=== PATIENT | female | born 1990 | race Caucasian/White ===

== ENCOUNTER → 2016-10-27 | Outpatient (CLI) | payer MEDICAID ==
[~2016-10-27] MED LIST: ARIP10TA2 PO; BUDE10.2 IH; CIPR500T4 PO; DULO20CA PO; DULO30CA48 PO; ESCI20TA2 PO; FLUT9.9S NS; HYDR-3729 PO; HYDR-3730 PO; HYDR-3816 PO; LORA-405 PO; NITR-65 PO; ONDA4TAB11 PO; ONDA8TAB13 PO; OXYC-12 PO; PRD20T PO; PREN1TAB39 PO; PRENATAL VIT PO; RT-ALBUINH IH
--- NOTE | 2016-10-27 11:14 | Diagnostic Imaging Report ---
PROCEDURE: MRI right joint lower extremity without contrast. TECHNIQUE: Multiplanar, multisequence non contrast-enhanced MRI of the right lower extremity was accomplished. INDICATION: Knee pain. Reportedly, the patient has had four prior knee arthroscopic procedures and has a history of a torn meniscus. The previous MRI right knee exam of 11/27/2014, did note postsurgical changes consistent with a partial medial meniscectomy. On this exam the medial meniscus appears similar to the prior study. There is no abnormal signal arising from the meniscus to suggest a tear. There is minimal irregularity of the inferior articular surface of the posterior horn of the lateral meniscus. This portion of the meniscus may be slightly frayed. The anterior and posterior cruciate ligaments, the quadriceps and the infrapatellar tendons, the collateral ligaments, the biceps femoris tendon, and the iliotibial band are intact. There is no sign of a tear of either the medial or lateral retinaculum. There is no abnormal signal arising from the osseous structures to suggest bone edema or a fracture. There is a thin band of decreased signal extending transversely through the fibular head. This was not present on the prior exam. There does not seem to be any bone edema in this area to suggest an acute fracture. If this is a fracture it is nondisplaced. Clinical followup is recommended. The knee joint is fairly well maintained. There is a very small joint effusion present. There is no sign of a Mendoza cyst. IMPRESSION: 1. The medial meniscus appears similar to the prior exam. There is no evidence for a new tear of the medial meniscus. 2. The minimal irregularity of the inferior articular surface of the posterior horn of the lateral meniscus suggests that this portion of the meniscus may be slightly frayed. 3. The major ligaments and tendons are intact. 4. The small linear area of diminished signal in the fibular head is of uncertain etiology but could represent a subacute or chronic nondisplaced fracture. Clinical followup is recommended. There is no evidence for an acute bony abnormality otherwise. Dictated by: Dictated on workstation # [id number]
== END ==
LOC: RAD 09:19
PROVIDERS: ATTEND Orthopaedic Surgery
DX: M25.561 Pain in right knee (principal)
CPT/HCPCS: 73721

== ENCOUNTER 2016-11-07 14:56 | Outpatient (CLI) | payer MEDICAID ==
[~2016-11-07] VITALS: Ht 162.6 cm; Wt 130.4 kg
[~2016-11-07 14:56] MED LIST changes: -BUDE10.2 IH; -HYDR-3816 PO; -LORA-405 PO
[2016-11-07] MEDS ORDERED: LORA-405 PO (15:08)
[2016-11-07] MEDS ORDERED: BUDE10.2 IH (15:08)
[2016-11-07 15:12] VITALS: BP 113/72
[2016-11-08] MEDS ORDERED: HYDR-3816 PO (11:31)
== END 2016-11-07 15:33 | disposition home or self-care (01) ==
LOC: PREOP 14:56
PROVIDERS: ATTEND Orthopaedic Surgery
DX: Z01.818 Encounter for other preprocedural examination (principal); S83.281A Other tear of lateral meniscus, current injury, right knee, initial encounter; X58.XXXA Exposure to other specified factors, initial encounter; Y99.8 Other external cause status
CPT/HCPCS: 87081

== ENCOUNTER 2016-11-08 08:52 | Day surgery (SDC) | payer MEDICAID ==
[~2016-11-08] VITALS: Ht 162.6 cm; Wt 130.4 kg
[~2016-11-08 08:52] MED LIST changes: +BUDE10.2 IH; +LORA-405 PO
[2016-11-08] MEDS ORDERED: NS (IVPB) 50 ML ONE (09:03)
[2016-11-08] MEDS ORDERED: CLINDAMYCIN 600 MG/4ML (CLEOCIN) VIAL ONE (09:03)
--- NOTE | 2016-11-08 09:14 | Progress Note-Pre Operative ---
Pre-Operative Progress Note H&P Reviewed The H&P was reviewed, patient examined and no changes noted. Date Seen by Provider: Nov 08, 2016 Time Seen by Provider: 09:14 Date H&P Reviewed: Nov 08, 2016 Time H&P Reviewed: 09:14 Pre-Operative Diagnosis: right knee lateral meniscus tear and chondromalacia JOVAN ASHRAF MD Nov 08, 2016 09:14
[2016-11-08] MEDS ORDERED: CLINDAMYCIN 600 MG/NS 50 ML IVPB IV ONE ×2 (09:15)
--- NOTE | 2016-11-08 09:16 | Progress Note-Post Operative ---
Post-Operative Progess Note Surgeon (s)/Underwear Hemmer (s) Surgeon JOVAN ASHRAF MD Underwear Hemmer: Aureliano Frank Pre-Operative Diagnosis right knee lateral meniscus tear and chondromalacia Post-Operative Diagnosis right knee chondromalacia of the medial and lateral tibial plateaus Procedure & Operative Findings Date of Procedure 11/08/16 Procedure Performed/Findings right knee arthroscopic chondroplasty of the medial and lateral tibial plateaus Anesthesia Type GETA Estimated Blood Loss Estimated blood loss (mL): minimal Specimens/Packing Specimens Removed none Packing: none JOVAN ASHRAF MD Nov 08, 2016 09:16
[2016-11-08] MEDS ORDERED: LIDOCAINE PF 2% 5 ML (XYLOCAINE) VIAL ONE (09:24)
[2016-11-08] MEDS ORDERED: SEVOFLURANE (ULTANE) 15 ML INHAL SOLN ONE ×3 (09:24→10:25)
[2016-11-08] MEDS ORDERED: ONDANSETRON 4 MG/2 ML (SDV) Z0FRAN ONE (09:24)
[2016-11-08] MEDS ORDERED: proPOfol 200 MG/20 ML (DIPRIVAN) VIAL IV ONE (09:24)
[2016-11-08] MEDS ORDERED: fentaNYL INJECTION 250 MCG/5 ML AMP ONE (09:24)
[2016-11-08] MEDS ORDERED: LACTATED RINGERS 1,000 ML IV PRN (09:29)
[2016-11-08 09:30] VITALS: BP 116/82
[2016-11-08] MEDS ORDERED: MIDAZOLAM 2 MG/2 ML (VERSED) VIAL IV ONE (09:30)
[2016-11-08] MEDS ORDERED: HYDROcodone/APAP 7.5 MG/325 MG (LORTAB, LORCET PLUS) TABLET PO PRN (09:30)
[2016-11-08] MEDS ORDERED: morphine PF (DURAMORPH) 10 MG/10 ML AMP ONE (09:48)
[2016-11-08] MEDS ORDERED: BUPIVACAINE 0.25% 30 ML (SENSORCAINE) VIAL ONE (09:48)
[2016-11-08] MEDS ORDERED: morphine INJ 10 MG/ML 1ML (SYR OR VIAL) ONE (10:26)
[2016-11-08] MEDS: morphine INJ 10 MG/ML 1ML (SYR OR VIAL) IVP PRN ×2 (10:42→10:54)
[2016-11-08] MEDS ORDERED: ONDANSETRON 4 MG/2 ML (SDV) Z0FRAN IVP PRN (10:45)
[2016-11-08] MEDS ORDERED: RT-ALBUTEROL SULF 2.5 MG/3 ML PRE-MIX VIAL ONE (10:54)
[2016-11-08] MEDS ORDERED: RT-ALBUTEROL SULF 2.5 MG/3 ML PRE-MIX VIAL INH ONE (11:15)
[2016-11-08 11:30] VITALS: BP 112/71
[2016-11-08] MEDS ORDERED: HYDR-3816 PO (11:31)
[2016-11-08 12:00] VITALS: BP 102/60
[2016-11-08 12:30] VITALS: BP 138/91
[2016-11-08 12:50] VITALS: BP 116/82
--- NOTE | 2016-11-09 01:33 | OPERATIVE REPORT ---
DATE OF SERVICE: 11/08/2016 PREOPERATIVE DIAGNOSIS: Right knee lateral meniscal tear. POSTOPERATIVE DIAGNOSIS: 1. 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 2. Right knee chondromalacia of the lateral tibial plateau. PROCEDURES: 1. Right knee arthroscopic chondroplasty of the medial tibial plateau. 2. __right___ knee arthroscopic chondroplasty of the lateral tibial plateau. SURGEON: JOVAN ASHRAF MD LOANS OFFICER: YUMIKO Combs, who assisted throughout the procedure and closed the incisions. ANESTHESIA: General endotracheal by Gasper Carreno CRNA. TOURNIQUET TIME: Not applicable. ESTIMATED BLOOD LOSS: Minimal. DRAINS: None. COMPLICATIONS: None. POSTOPERATIVE PLAN: Routine arthroscopy protocol. The patient was transferred to the recovery room awake and in stable condition. STATEMENT OF MEDICAL NECESSITY: The patient is a 26-year-old female who has undergone multiple right knee arthroscopies in the past. She was doing well until she struck her knee and since then has had anterior knee pain, swelling, catching and locking. This has been unresponsive to conservative measures and due to functional impairment the patient would like to proceed with surgical intervention. Exam under anesthesia revealed range of motion 0/0/135 with a negative Roula, negative anterior and posterior drawer. No varus or valgus laxity and a negative pivot shift. Arthroscopic findings of patella and trochlea did demonstrate no abnormalities. Medial and lateral gutters were clear. The ACL and PCL were intact. The medial compartment demonstrated grade chondral flap of the central portion of the tibial plateau in a 5 x 8 area. No meniscal pathology was noted. The lateral compartment demonstrated no meniscal pathology. However there was a grade 2 chondral flap over the central portion of the tibial plateau in an 8 x 8 area. PROCEDURE: After risks and benefits of the procedure were discussed and questions were answered an informed consent was signed and placed on the chart and the patient was transferred to the operating room. At time out was called confirming the operative site and examination under anesthesia was performed with the above findings noted. The right lower extremity was then prepped and draped in the usual sterile fashion. The knee joint was injected with 16 mL of fluid and a standard inferior lateral port was placed under direct visualization. An inferior medial port was created and the menisci cruciate was probed with above findings noted. The unstable chondral flaps from the medial tibial plateau were debrided with a shaver back to a staple edge. The scope was then redirected into the lateral compartment. The unstable chondral flaps from the lateral tibial plateau were debrided with a shaver back to a staple edge. The knee was copiously irrigated and the port site was closed with 3-0 nylon in simple interrupted fashion. The knee was injected with Duramorph and the port sites were infiltrated with plain Marcaine and soft dressing was applied. The patient was transported to the recovery room awake and in stable condition. Job ID: [id number] DocumentID: [id number] Dictated Date: 11/08/2016 10:41:59 Mechanical Car Checker Date: 11/08/2016 18:42:22 Dictated By: JOVAN ASHRAF MD MTDD
== END 2016-11-08 12:50 | disposition home or self-care (01) ==
LOC: SDC 08:52
PROVIDERS: ATTEND Orthopaedic Surgery
DX: J45.909 Unspecified asthma, uncomplicated; M94.261 Chondromalacia, right knee; F17.210 Nicotine dependence, cigarettes, uncomplicated; Z79.899 Other long term (current) drug therapy
CPT/HCPCS: 36430; 84703

== ENCOUNTER → 2017-05-22 | Outpatient (CLI) | payer MEDICAID ==
[~2017-05-22] MED LIST changes: +HYDR-34 PO
--- NOTE | 2017-05-22 13:25 | Diagnostic Imaging Report ---
INDICATION: Dysmenorrhea and menorrhagia. TECHNIQUE: Multiple Real-time grayscale images were obtained over the pelvis in various projections both transabdominally and endovaginally. FINDINGS: The uterus measures 8.3 x 4.6 x 4.4 cm. The endometrial thickness is 8 mm. There are no myometrial or endometrial masses. Neither ovary is visualized. There are no adnexal masses. There is no free pelvic fluid. IMPRESSION: Both ovaries are obscured by bowel gas; otherwise, unremarkable pelvic ultrasound. Dictated by: Dictated on workstation # [id number]
== END ==
LOC: RAD 11:58
PROVIDERS: ATTEND Nurse Practitioner
DX: N94.6 Dysmenorrhea, unspecified (principal); N92.0 Excessive and frequent menstruation with regular cycle
CPT/HCPCS: 76830; 76856

== ENCOUNTER 2017-06-25 05:36 | Outpatient (CLI) | payer MEDICAID ==
[~2017-06-25] VITALS: Ht 162.6 cm; Wt 117.9 kg
[2017-06-25 09:39] VITALS: BP 128/88
[2017-06-25] MEDS ORDERED: LISD70CA3 PO (09:45)
[2017-06-25] MEDS ORDERED: FLUT15.88 NS (09:49)
[2017-06-28] MEDS ORDERED: ACHD5005 PO (09:44)
[2017-06-28] MEDS ORDERED: IBUP-1773 PO (09:44)
== END 2017-06-25 10:00 | disposition home or self-care (01) ==
LOC: PREOP 05:36
PROVIDERS: ATTEND Obstetrics & Gynecology
DX: Z01.812 Encounter for preprocedural laboratory examination (principal); Z11.2 Encounter for screening for other bacterial diseases; R10.2 Pelvic and perineal pain; N93.9 Abnormal uterine and vaginal bleeding, unspecified
CPT/HCPCS: 84703; 87081

== ENCOUNTER 2018-07-16 08:07 | Emergency (ER) | payer MEDICAID ==
[~2018-07-16] VITALS: Ht 162.6 cm; Wt 122.5 kg
[~2018-07-16 08:07] MED LIST changes: +ACHD5005 PO; +FLUT15.88 NS; +IBUP-1773 PO; +LISD70CA3 PO
--- OUTSIDE RECORDS SUMMARY | 2018-07-16 08:16 | XMS REPORT | Continuity of Care Document ---
Author Organization Unknown Address Unknown Allergies Active Description Code Type Severity Reaction Onset Reported/Identified Relationship to Patient Clinical Status Yes amoxicillin trihydrate [id number] Drug Allergy Unknown N/A 06/08/2011 Yes tramadol [id number] Drug Allergy Unknown HEADACHES 12/11/2014 Yes tramadol [id number] Drug Allergy Mild HEADACHES 11/07/2016 Yes amoxicillin trihydrate [id number] Drug Allergy Unknown HAS HAD ANCEF W 11/07/2016 Medications There is no data. Problems Date Dx Coded Attending Type Code Diagnosis Diagnosed By 06/08/2011 Ot 644.03 THRT LUIS MIGUEL LABOR- ANTEPART 06/13/2011 Ot 278.00 OBESITY, NOS 06/13/2011 Ot 592.0 CALCULUS OF KIDNEY 06/13/2011 Ot 648.93 OTH CURR COND- ANTEPARTUM 06/13/2011 Ot 649.13 OBESITY COMP PREG/CHILDBIRTH/PUERPERIUM, 06/13/2011 Ot 654.23 PREV DELIVERY, ANTEPARTUM COND 07/07/2011 Ot 644.13 THREAT LABOR NEC-ANTEPAR 07/07/2011 Ot 654.23 PREV DELIVERY, ANTEPARTUM COND 07/14/2011 Ot 654.21 PREV DELIVRY W/ OR W/O MENT ANT 07/14/2011 Ot 656.61 EXCESS GRTH-DELIV 07/14/2011 Ot 663.31 CORD ENTANGLE NEC-DELIV 07/14/2011 Ot V06.1 [id number], COMBINED [ 07/14/2011 Ot V27.0 DELIVER-SINGLE LIVEBORN 09/13/2011 Ot 592.0 CALCULUS OF KIDNEY 11/25/2014 Ot 654.23 11/25/2014 Ot V72.63 11/25/2014 Ot V74.8 11/25/2014 Ot 592.0 11/25/2014 Ot 592.0 11/25/2014 Ot V72.84 11/25/2014 Ot V74.8 11/25/2014 Ot 592.0 11/25/2014 Ot V45.89 11/25/2014 Ot 592.9 11/27/2014 Ot 654.23 11/27/2014 Ot V72.63 11/27/2014 Ot V74.8 11/27/2014 Ot 592.0 11/27/2014 Ot 592.0 11/27/2014 Ot V72.84 11/27/2014 Ot V74.8 11/27/2014 Ot 592.0 11/27/2014 Ot V45.89 11/27/2014 Ot 592.9 12/04/2014 ANDRIY JUNIOR, JOVAN Rutledge Ot M23.203 12/08/2014 ANDRIY JUNIOR, JOVAN Rutledge Ot M23.203 12/10/2014 ANDRIY JUNIOR, JOVAN Rutledge Ot M23.203 12/16/2014 Ot 654.23 12/16/2014 Ot V72.63 12/16/2014 Ot V74.8 12/16/2014 Ot 592.0 12/16/2014 Ot 592.0 12/16/2014 Ot V72.84 12/16/2014 Ot V74.8 12/16/2014 Ot 592.0 12/16/2014 Ot V45.89 12/16/2014 Ot 592.9 12/16/2014 ANDRIY JUNIOR, JOVAN Rutledge Ot M23.203 12/16/2014 ANDRIY JUNIOR, JOVAN Rutledge Ot M22.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, RIGHT KNEE 12/16/2014 ANDRIY JUNIOR, JOVAN Rutledge Ot M67.51 PLICA SYNDROME, RIGHT KNEE 12/16/2014 ANDRIY JUNIOR, JOVAN Rutledge Ot Z11.2 ENCOUNTER FOR SCREENING FOR OTHER BACTER 04/02/2015 Ot M54.16 07/22/2015 Ot 654.23 PREV DELIVERY, ANTEPARTUM COND 07/22/2015 Ot V72.63 PRE-PROCEDURAL LABORATORY EXAMINATION 07/22/2015 Ot V74.8 SCREEN-BACTERIAL DIS NEC 07/22/2015 Ot 592.0 CALCULUS OF KIDNEY 07/22/2015 Ot 592.0 CALCULUS OF KIDNEY 07/22/2015 Ot V72.84 EXAM PRE-OPERATIVE NOS 07/22/2015 Ot V74.8 SCREEN-BACTERIAL DIS NEC 07/22/2015 Ot 592.0 CALCULUS OF KIDNEY 07/22/2015 Ot V45.89 POSTSURGICAL STATES NEC 07/22/2015 Ot 592.9 URINARY CALCULUS NOS 07/22/2015 ANDRIY JUNIOR, JOVAN Rutledge Ot M23.203 DERANG OF UNSP MEDIAL MENISCUS DUE TO OL 07/22/2015 Ot M54.16 RADICULOPATHY, LUMBAR REGION 08/04/2015 NICK JUNIOR, ANAI Null Ot Z33.1 STATE, INCIDENTAL 08/07/2015 STACY MENDIOLA Ot F17.210 NICOTINE DEPENDENCE, CIGARETTES, UNCOMPL 08/07/2015 STACY MENDIOLA Ot O20.0 THREATENED 08/07/2015 STACY MENDIOLA Ot Z3A.01 LESS THAN 8 WEEKS GESTATION OF 08/08/2015 Ot O03.9 COMPLETE OR UNSP SPONTANEOUS [place] 08/08/2015 Ot Z3A.01 LESS THAN 8 WEEKS GESTATION OF 08/09/2015 STACY MENDIOLA Ot F17.210 NICOTINE DEPENDENCE, CIGARETTES, UNCOMPL 08/09/2015 STACY MENDIOLA Ot O20.0 THREATENED 08/09/2015 STACY MENDIOLA Ot Z3A.01 LESS THAN 8 WEEKS GESTATION OF 08/09/2015 ANAI ROMERO MD Ot O02.1 MISSED 08/09/2015 ANAI ROMERO MD Ot Z01.818 ENCOUNTER FOR OTHER PREPROCEDURAL EXAMIN 08/10/2015 ANAI ROMERO MD Ot O02.1 MISSED 08/10/2015 ANAI ROMERO MD Ot Z3A.01 LESS THAN 8 WEEKS GESTATION OF 08/13/2015 STACY MENDIOLA Ot F17.210 NICOTINE DEPENDENCE, CIGARETTES, UNCOMPL 08/13/2015 STACY MENDIOLA Ot O20.0 THREATENED 08/13/2015 STACY MENDIOLA Ot Z3A.01 LESS THAN 8 WEEKS GESTATION OF 08/15/2015 ANAI ROMERO MD Ot O02.1 MISSED 08/15/2015 ANAI ROMERO MD Ot Z01.818 ENCOUNTER FOR OTHER PREPROCEDURAL EXAMIN 12/22/2015 Ot 654.23 PREV DELIVERY, ANTEPARTUM COND 12/22/2015 Ot V72.63 PRE-PROCEDURAL LABORATORY EXAMINATION 12/22/2015 Ot V74.8 SCREEN-BACTERIAL DIS NEC 12/22/2015 Ot 592.0 CALCULUS OF KIDNEY 12/22/2015 Ot 592.0 CALCULUS OF KIDNEY 12/22/2015 Ot V72.84 EXAM PRE-OPERATIVE NOS 12/22/2015 Ot V74.8 SCREEN-BACTERIAL DIS NEC 12/22/2015 Ot 592.0 CALCULUS OF KIDNEY 12/22/2015 Ot V45.89 POSTSURGICAL STATES NEC 12/22/2015 Ot 592.9 URINARY CALCULUS NOS 12/22/2015 ANDRIY JUNIOR, JOVAN Rutledge Ot M23.203 DERANG OF UNSP MEDIAL MENISCUS DUE TO OL 12/22/2015 Ot M54.16 RADICULOPATHY, LUMBAR REGION 12/22/2015 NICK JUNIOR, ANAI Null Ot Z33.1 STATE, INCIDENTAL 12/24/2015 ANDRIY JUNIOR, JOVAN Rutledge Ot M22.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, RIGHT KNEE 01/03/2016 ANDRIY JUNIOR, JOVAN Rutledge Ot M22.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, RIGHT KNEE 01/11/2016 ANDRIY JUNIOR, JOVAN Rutledge Ot M22.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, RIGHT KNEE 01/13/2016 STACY MENDIOLA Ot J40 BRONCHITIS, NOT SPECIFIED ACUTE OR CH 01/13/2016 STACY MENDIOLA Ot R05 COUGH 01/13/2016 STACY MENDIOLA Ot R11.2 NAUSEA WITH VOMITING, UNSPECIFIED 01/13/2016 STACY MENDIOLA Ot R19.7 DIARRHEA, UNSPECIFIED 01/14/2016 STACY MENDIOLA Ot J40 BRONCHITIS, NOT SPECIFIED ACUTE OR CH 01/14/2016 STACY MENDIOLA Ot R05 COUGH 01/14/2016 STACY MENDIOLA Ot R11.2 NAUSEA WITH VOMITING, UNSPECIFIED 01/14/2016 STACY MENDIOLA Ot R19.7 DIARRHEA, UNSPECIFIED 01/15/2016 STACY MENDIOLA Ot J40 BRONCHITIS, NOT SPECIFIED ACUTE OR CH 01/15/2016 STACY MENDIOLA Ot R05 COUGH 01/15/2016 STACY MENDIOLA Ot R11.2 NAUSEA WITH VOMITING, UNSPECIFIED 01/15/2016 STACY MENDIOLA Ot R19.7 DIARRHEA, UNSPECIFIED 01/28/2016 JOVAN ASHRAF MD, Ot M22.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, RIGHT KNEE 10/25/2016 JOVAN ASHRAF MD, Ot M22.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, RIGHT KNEE 10/25/2016 JOVAN ASHRAF MD Ot M23.203 DERANG OF UNSP MEDIAL MENISCUS DUE TO OL 10/25/2016 JOVAN ASHRAF MD Ot Z01.818 ENCOUNTER FOR OTHER PREPROCEDURAL EXAMIN 10/30/2016 JOVAN ASHRAF MD Ot M25.561 PAIN IN RIGHT KNEE 11/07/2016 JOVAN ASHRAF MD Ot S83.281A OTH TEAR OF LAT MENSC, CURRENT INJURY, R 11/07/2016 JOVAN ASHRAF MD Ot X58.XXXA EXPOSURE TO OTHER SPECIFIED FACTORS, INI 11/07/2016 JOVAN ASHRAF MD Ot Y99.8 OTHER EXTERNAL CAUSE STATUS 11/07/2016 JOVAN ASHRAF MD Ot Z01.818 ENCOUNTER FOR OTHER PREPROCEDURAL EXAMIN 11/08/2016 JOVAN ASHRAF MD Ot F17.210 NICOTINE DEPENDENCE, CIGARETTES, UNCOMPL 11/08/2016 JOVAN ASHRAF MD Ot J45.909 UNSPECIFIED ASTHMA, UNCOMPLICATED 11/08/2016 JOVAN ASHRAF MD Ot M94.261 CHONDROMALACIA, RIGHT KNEE 11/08/2016 JOVAN ASHRAF MD Ot Z79.899 OTHER WELDER TECH (CURRENT) DRUG THERAPY 11/13/2016 JOVAN ASHRAF MD Ot S83.281A OTH TEAR OF LAT MENSC, CURRENT INJURY, R 11/13/2016 JOVAN ASHRAF MD Ot X58.XXXA EXPOSURE TO OTHER SPECIFIED FACTORS, INI 11/13/2016 JOVAN ASHRAF MD Ot Y99.8 OTHER EXTERNAL CAUSE STATUS 11/13/2016 JOVAN ASHRAF MD Ot Z01.818 ENCOUNTER FOR OTHER PREPROCEDURAL EXAMIN 11/24/2016 JOVAN ASHRAF MD Ot M25.561 PAIN IN RIGHT KNEE 05/23/2017 YESENIA PEPPERP Ot N92.0 EXCESSIVE AND FREQUENT MENSTRUATION WITH 05/23/2017 YESENIA PEPPER CONCIERGE RECEPTIONIST Ot N94.6 DYSMENORRHEA, UNSPECIFIED 05/23/2017 YESENIA PEPPER CONCIERGE RECEPTIONIST Ot N92.0 EXCESSIVE AND FREQUENT MENSTRUATION WITH 05/23/2017 YESENIA PEPPER CONCIERGE RECEPTIONIST Ot N94.6 DYSMENORRHEA, UNSPECIFIED 06/25/2017 FENECH DO, JOVAN Calvin Ot N93.9 ABNORMAL UTERINE AND VAGINAL BLEEDING, U 06/25/2017 LEE ANNECH DO, JOVAN Marixa Ot R10.2 PELVIC AND PERINEAL PAIN 06/25/2017 FENECH DO, JOVAN S Ot Z01.812 ENCOUNTER FOR PREPROCEDURAL LABORATORY E 06/25/2017 FENECH DO, JOVAN S Ot Z11.2 ENCOUNTER FOR SCREENING FOR OTHER BACTER 06/27/2017 LEE ANNECH DO, JOVAN Marixa Ot N93.9 ABNORMAL UTERINE AND VAGINAL BLEEDING, U 06/27/2017 LEE ANNECH DO, JOVAN Calvin Ot R10.2 PELVIC AND PERINEAL PAIN 06/27/2017 FENECH DO, JOVAN Marixa Ot Z01.812 ENCOUNTER FOR PREPROCEDURAL LABORATORY E 06/27/2017 LEE ANNECH DO, JOVAN S Ot Z11.2 ENCOUNTER FOR SCREENING FOR OTHER BACTER 06/28/2017 LEE ANNECH DO, JOVAN Calvin Ot E66.01 MORBID (SEVERE) OBESITY DUE TO EXCESS CA 06/28/2017 LEE ANNECH DO, JOVAN Calvin Ot N92.0 EXCESSIVE AND FREQUENT MENSTRUATION WITH 06/28/2017 LEE ANNECH DO, JOVAN Calvin Ot N93.9 ABNORMAL UTERINE AND VAGINAL BLEEDING, U 06/28/2017 LEE ANNECH DO, JOVAN Calvin Ot N94.12 DEEP DYSPAREUNIA 06/28/2017 BERNARDO DO JOVAN Calvin Ot N94.5 SECONDARY DYSMENORRHEA 06/28/2017 BERNARDO DOJOVAN Marixa Ot R10.2 PELVIC AND PERINEAL PAIN 06/28/2017 LEE ANNECH DO, JOVAN Marixa Ot Z40.03 ENCOUNTER FOR PROPHYLACTIC REMOVAL OF FA 06/28/2017 FENECH DO, JOVAN S Ot Z68.41 BODY MASS INDEX (BMI) 40.0-44.9, ADULT 06/29/2017 BOB JUNIOR, ASHIA Calvin Ot F32.9 MAJOR DEPRESSIVE DISORDER, SINGLE EPISOD 06/29/2017 BOB JUNIOR, ASHIA Calvin Ot F41.9 ANXIETY DISORDER, UNSPECIFIED 06/29/2017 BOB JUNIOR, ASHIA Calvin Ot F43.10 POST-TRAUMATIC STRESS DISORDER, UNSPECIF 06/29/2017 ASHIA ROJAS MD Ot G89.18 OTHER ACUTE POSTPROCEDURAL PAIN 06/29/2017 ASHIA ROJAS MD Ot J45.909 UNSPECIFIED ASTHMA, UNCOMPLICATED 06/29/2017 BOB JUNIOR, ASHIA Calvin Ot R10.30 LOWER ABDOMINAL PAIN, UNSPECIFIED 06/29/2017 BOB JUNIOR, ASHIA Calvin Ot Z79.51 WELDER TECH (CURRENT) USE OF INHALED STERO 06/29/2017 ASHIA ROJAS MD Ot Z87.442 PERSONAL HISTORY OF URINARY CALCULI 06/29/2017 BOB JUNIOR, ASHIA Calvin Ot Z87.59 PERSONAL HISTORY OF COMP OF PREG, CHLDBR 06/29/2017 ASHIA ROJAS MD Ot Z88.0 ALLERGY STATUS TO PENICILLIN 06/29/2017 ASHIA ROJAS MD Ot Z88.6 ALLERGY STATUS TO ANALGESIC AGENT STATUS 06/29/2017 ASHIA ROJAS MD Ot Z90.89 ACQUIRED ABSENCE OF OTHER ORGANS 06/29/2017 ASHIA ROJAS MD Ot Z98.890 OTHER SPECIFIED POSTPROCEDURAL STATES 07/02/2017 BOB JUNIOR, ASHIA Calvin Ot F32.9 MAJOR DEPRESSIVE DISORDER, SINGLE EPISOD 07/02/2017 BOB JUNIOR, ASHIA Calvin Ot F41.9 ANXIETY DISORDER, UNSPECIFIED 07/02/2017 BOB JUNIOR, ASHIA Calvin Ot F43.10 POST-TRAUMATIC STRESS DISORDER, UNSPECIF 07/02/2017 ASHIA ROJAS MD Ot G89.18 OTHER ACUTE POSTPROCEDURAL PAIN 07/02/2017 ASHIA ROJAS MD Ot J45.909 UNSPECIFIED ASTHMA, UNCOMPLICATED 07/02/2017 BOB JUNIOR, ASHIA Calvin Ot R10.30 LOWER ABDOMINAL PAIN, UNSPECIFIED 07/02/2017 BOB JUNIOR, ASHIA Calvin Ot Z79.51 DETENTION (CURRENT) USE OF INHALED STERO 07/02/2017 ASHIA ROJAS MD Ot Z87.442 PERSONAL HISTORY OF URINARY CALCULI 07/02/2017 ASHIA ROJAS MD Ot Z87.59 PERSONAL HISTORY OF COMP OF PREG, CHLDBR 07/02/2017 ASHIA ROJAS MD Ot Z88.0 ALLERGY STATUS TO PENICILLIN 07/02/2017 ASHIA ROJAS MD Ot Z88.6 ALLERGY STATUS TO ANALGESIC AGENT STATUS 07/02/2017 ASHIA ROJAS MD Ot Z90.89 ACQUIRED ABSENCE OF OTHER ORGANS 07/02/2017 ASHIA ROJAS MD Ot Z98.890 OTHER SPECIFIED POSTPROCEDURAL STATES 07/02/2017 JOVAN CHANG DO Ot E66.01 MORBID (SEVERE) OBESITY DUE TO EXCESS CA 07/02/2017 JOVAN CHANG DO Ot N92.0 EXCESSIVE AND FREQUENT MENSTRUATION WITH 07/02/2017 JOVAN CHANG DO Ot N93.9 ABNORMAL UTERINE AND VAGINAL BLEEDING, U 07/02/2017 JOVAN CHANG DO Ot N94.12 DEEP DYSPAREUNIA 07/02/2017 JOVAN CHANG DO Ot N94.5 SECONDARY DYSMENORRHEA 07/02/2017 JOVAN CHANG DO Ot R10.2 PELVIC AND PERINEAL PAIN 07/02/2017 JOVAN CHANG DO Ot Z40.03 ENCOUNTER FOR PROPHYLACTIC REMOVAL OF FA 07/02/2017 JOVAN CHANG DO Ot Z68.41 BODY MASS INDEX (BMI) 40.0-44.9, ADULT 07/02/2017 JOVAN CHANG DO Ot E66.01 MORBID (SEVERE) OBESITY DUE TO EXCESS CA 07/02/2017 JOVAN CHANG DO Ot N92.0 EXCESSIVE AND FREQUENT MENSTRUATION WITH 07/02/2017 JOVAN CHANG DO Ot N93.9 ABNORMAL UTERINE AND VAGINAL BLEEDING, U 07/02/2017 JOVAN CHANG DO Ot N94.12 DEEP DYSPAREUNIA 07/02/2017 JOVAN CHANG DO Ot N94.5 SECONDARY DYSMENORRHEA 07/02/2017 BERNARDO THOMPSON JOVAN Calvin Ot R10.2 PELVIC AND PERINEAL PAIN 07/02/2017 BERNARDO THOMPSON JOVAN Calvin Ot Z40.03 ENCOUNTER FOR PROPHYLACTIC REMOVAL OF FA 07/02/2017 JOVAN CHANG DO Ot Z68.41 BODY MASS INDEX (BMI) 40.0-44.9, ADULT Procedures Code Description Performed By Performed On 74.1 07/11/2011 Results Test Result Range Complete blood count (CBC) with automated white blood cell (WBC) differential - 01/13/16 17:52 Blood leukocytes automated count (number/volume) 10.5 10*3/uL 4.3-11.0 Blood erythrocytes automated count (number/volume) 4.74 10*6/uL 4.35-5.85 Venous blood hemoglobin measurement (mass/volume) 14.3 g/dL 11.5-16.0 Blood hematocrit (volume fraction) 41 % 35-52 Automated erythrocyte mean corpuscular volume 86 [foz_us] 80-99 Automated erythrocyte mean corpuscular hemoglobin (mass per erythrocyte) 30 pg 25-34 Automated erythrocyte mean corpuscular hemoglobin concentration measurement (mass/volume) 35 g/dL 32-36 Automated erythrocyte distribution width ratio 12.5 % 10.0- 14.5 Automated blood platelet count (count/volume) 208 10*3/uL 130-400 Automated blood platelet mean volume measurement 9.9 [foz_us] 7.4-10.4 Automated blood neutrophils/100 leukocytes 73 % 42-75 Automated blood lymphocytes/100 leukocytes 19 % 12-44 Blood monocytes/100 leukocytes 7 % 0-12 Automated blood eosinophils/100 leukocytes 1 % 0-10 Automated blood basophils/100 leukocytes 0 % 0-10 Blood neutrophils automated count (number/volume) 7.7 10*3 1.8-7.8 Blood lymphocytes automated count (number/volume) 2.0 10*3 1.0-4.0 Blood monocytes automated count (number/volume) 0.7 10*3 0.0- 1.0 Automated eosinophil count 0.1 10*3/uL 0.0-0.3 Automated blood basophil count (count/volume) 0.0 10*3/uL 0.0-0.1 Serum heterophile antibody titer - 01/13/16 17:52 Serum heterophile antibody titer NEGATIVE NEGATIVE Influenza virus A and B antigen detection - 01/13/16 17:52 FLU RESULT NEGATIVE FOR INFLUENZA A AND B ANTIGENS BY [facility] Comprehensive metabolic panel - 01/13/16 17:52 Serum or plasma sodium measurement (moles/volume) 140 mmol/L 135-145 Serum or plasma potassium measurement (moles/volume) 4.2 mmol/L 3.6-5.0 Serum or plasma chloride measurement (moles/volume) 108 mmol/L 98-107 Carbon dioxide 22 mmol/L 21-32 Serum or plasma anion gap determination (moles/volume) 10 mmol/L 5-14 Serum or plasma urea nitrogen measurement (mass/volume) 17 mg/dL 7-18 Serum or plasma creatinine measurement (mass/volume) 0.82 mg/dL 0.60-1.30 Serum or plasma urea nitrogen/creatinine mass ratio 21 NRG Serum or plasma creatinine measurement with calculation of estimated glomerular filtration rate > NRG Serum or plasma glucose measurement (mass/volume) 105 mg/dL 70-105 Serum or plasma calcium measurement (mass/volume) 9.4 mg/dL 8.5-10.1 Serum or plasma total bilirubin measurement (mass/volume) 0.3 mg/dL 0.1-1.0 Serum or plasma alkaline phosphatase measurement (enzymatic activity/volume) 63 U/L 40-136 Serum or plasma aspartate aminotransferase measurement (enzymatic activity/volume) 15 U/L 5-34 Serum or plasma alanine aminotransferase measurement (enzymatic activity/volume) 25 U/L 0-55 Serum or plasma protein measurement (mass/volume) 6.7 g/dL 6.4-8.2 Serum or plasma albumin measurement (mass/volume) 4.0 g/dL 3.2-4.5 Lipase - 01/13/16 17:52 Lipase 39 U/L 8-78 Complete urinalysis with reflex to culture - 01/13/16 17:55 Urine color determination YELLOW NRG Urine clarity determination CLEAR NRG Urine pH measurement by test strip 6.5 5-9 Specific gravity of urine by test strip 1.015 1.016-1.022 Urine protein assay by test strip, semi-quantitative NEGATIVE NEGATIVE Urine glucose detection by automated test strip NEGATIVE NEGATIVE Erythrocytes detection in urine sediment by light microscopy 5+ NEGATIVE Urine ketones detection by automated test strip NEGATIVE NEGATIVE Urine nitrite detection by test strip NEGATIVE NEGATIVE Urine total bilirubin detection by test strip NEGATIVE NEGATIVE Urine urobilinogen measurement by automated test strip (mass/volume) NORMAL NORMAL Urine leukocyte esterase detection by dipstick NEGATIVE NEGATIVE Automated urine sediment erythrocyte count by microscopy (number/high power field) [HPF] NRG Automated urine sediment leukocyte count by microscopy (number/high power field) [HPF] NRG Bacteria detection in urine sediment by light microscopy NEGATIVE NRG Squamous epithelial cells detection in urine sediment by light microscopy 5-10 NRG Crystals detection in urine sediment by light microscopy NONE NRG Casts detection in urine sediment by light microscopy NONE NRG Mucus detection in urine sediment by light microscopy NEGATIVE NRG Complete urinalysis with reflex to culture NO NRG Methicillin resistant Staphylococcus aureus (MRSA) screening culture - 11/07/16 15:10 Methicillin resistant Staphylococcus aureus (MRSA) screening culture NEG NRG Urine beta human chorionic gonadotropin (hCG) measurement - 11/08/16 08:55 Urine beta human chorionic gonadotropin (hCG) measurement NEGATIVE NEGATIVE Methicillin resistant Staphylococcus aureus (MRSA) screening culture - 06/25/17 09:50 Methicillin resistant Staphylococcus aureus (MRSA) screening culture NEG NRG Urine beta human chorionic gonadotropin (hCG) measurement - 06/25/17 09:52 Urine beta human chorionic gonadotropin (hCG) measurement NEGATIVE NEGATIVE Complete blood count (CBC) with automated white blood cell (WBC) differential - 06/28/17 07:30 Blood leukocytes automated count (number/volume) 7.3 10*3/uL 4.3-11.0 Blood erythrocytes automated count (number/volume) 4.96 10*6/uL 4.35-5.85 Venous blood hemoglobin measurement (mass/volume) 15.0 g/dL 11.5-16.0 Blood hematocrit (volume fraction) 43 % 35-52 Automated erythrocyte mean corpuscular volume 87 [foz_us] 80-99 Automated erythrocyte mean corpuscular hemoglobin (mass per erythrocyte) 30 pg 25-34 Automated erythrocyte mean corpuscular hemoglobin concentration measurement (mass/volume) 35 g/dL 32-36 Automated erythrocyte distribution width ratio 13.1 % 10.0- 14.5 Automated blood platelet count (count/volume) 244 10*3/uL 130-400 Automated blood platelet mean volume measurement 9.8 [foz_us] 7.4-10.4 Automated blood neutrophils/100 leukocytes 59 % 42-75 Automated blood lymphocytes/100 leukocytes 33 % 12-44 Blood monocytes/100 leukocytes 6 % 0-12 Automated blood eosinophils/100 leukocytes 2 % 0-10 Automated blood basophils/100 leukocytes 0 % 0-10 Blood neutrophils automated count (number/volume) 4.3 10*3 1.8-7.8 Blood lymphocytes automated count (number/volume) 2.4 10*3 1.0-4.0 Blood monocytes automated count (number/volume) 0.4 10*3 0.0- 1.0 Automated eosinophil count 0.2 10*3/uL 0.0-0.3 Automated blood basophil count (count/volume) 0.0 10*3/uL 0.0-0.1 Blood type T Indirect antibody screen panel - 06/28/17 07:30 ABO+Rh group OP NRG Transfusion band number [id number] NRG Blood group antibody screen NEGATIVE NRG Complete urinalysis with reflex to culture - 06/29/17 16:10 Urine color determination YELLOW NRG Urine clarity determination CLEAR NRG Urine pH measurement by test strip 6.5 5-9 Specific gravity of urine by test strip 1.020 1.016-1.022 Urine protein assay by test strip, semi-quantitative 2+ NEGATIVE Urine glucose detection by automated test strip NEGATIVE NEGATIVE Erythrocytes detection in urine sediment by light microscopy 4+ NEGATIVE Urine ketones detection by automated test strip NEGATIVE NEGATIVE Urine nitrite detection by test strip NEGATIVE NEGATIVE Urine total bilirubin detection by test strip NEGATIVE NEGATIVE Urine urobilinogen measurement by automated test strip (mass/volume) 4 mg/dL NORMAL Urine leukocyte esterase detection by dipstick 1+ NEGATIVE Automated urine sediment erythrocyte count by microscopy (number/high power field) [HPF] NRG Automated urine sediment leukocyte count by microscopy (number/high power field) [HPF] NRG Bacteria detection in urine sediment by light microscopy NEGATIVE NRG Squamous epithelial cells detection in urine sediment by light microscopy 2-5 NRG Crystals detection in urine sediment by light microscopy PRESENT NRG Casts detection in urine sediment by light microscopy NONE NRG Mucus detection in urine sediment by light microscopy NEGATIVE NRG Complete urinalysis with reflex to culture NO NRG Calcium oxalate crystals detection in urine sediment by light microscopy FEW NRG Complete blood count (CBC) with automated white blood cell (WBC) differential - 06/29/17 16:40 Blood leukocytes automated count (number/volume) 11.3 10*3/uL 4.3-11.0 Blood erythrocytes automated count (number/volume) 4.64 10*6/uL 4.35-5.85 Venous blood hemoglobin measurement (mass/volume) 14.3 g/dL 11.5-16.0 Blood hematocrit (volume fraction) 41 % 35-52 Automated erythrocyte mean corpuscular volume 89 [foz_us] 80-99 Automated erythrocyte mean corpuscular hemoglobin (mass per erythrocyte) 31 pg 25-34 Automated erythrocyte mean corpuscular hemoglobin concentration measurement (mass/volume) 35 g/dL 32-36 Automated erythrocyte distribution width ratio 13.0 % 10.0- 14.5 Automated blood platelet count (count/volume) 211 10*3/uL 130-400 Automated blood platelet mean volume measurement 9.6 [foz_us] 7.4-10.4 Automated blood neutrophils/100 leukocytes 78 % 42-75 Automated blood lymphocytes/100 leukocytes 15 % 12-44 Blood monocytes/100 leukocytes 7 % 0-12 Automated blood eosinophils/100 leukocytes 0 % 0-10 Automated blood basophils/100 leukocytes 0 % 0-10 Blood neutrophils automated count (number/volume) 8.8 10*3 1.8-7.8 Blood lymphocytes automated count (number/volume) 1.7 10*3 1.0-4.0 Blood monocytes automated count (number/volume) 0.7 10*3 0.0- 1.0 Automated eosinophil count 0.0 10*3/uL 0.0-0.3 Automated blood basophil count (count/volume) 0.0 10*3/uL 0.0-0.1 Comprehensive metabolic panel - 06/29/17 16:40 Serum or plasma sodium measurement (moles/volume) 143 mmol/L 135-145 Serum or plasma potassium measurement (moles/volume) 3.9 mmol/L 3.6-5.0 Serum or plasma chloride measurement (moles/volume) 110 mmol/L 98-107 Carbon dioxide 24 mmol/L 21-32 Serum or plasma anion gap determination (moles/volume) 9 mmol/L 5-14 Serum or plasma urea nitrogen measurement (mass/volume) 11 mg/dL 7-18 Serum or plasma creatinine measurement (mass/volume) 0.77 mg/dL 0.60-1.30 Serum or plasma urea nitrogen/creatinine mass ratio 14 NRG Serum or plasma creatinine measurement with calculation of estimated glomerular filtration rate > NRG Serum or plasma glucose measurement (mass/volume) 101 mg/dL 70-105 Serum or plasma calcium measurement (mass/volume) 9.2 mg/dL 8.5-10.1 Serum or plasma total bilirubin measurement (mass/volume) 1.1 mg/dL 0.1-1.0 Serum or plasma alkaline phosphatase measurement (enzymatic activity/volume) 41 U/L 40-136 Serum or plasma aspartate aminotransferase measurement (enzymatic activity/volume) 19 U/L 5-34 Serum or plasma alanine aminotransferase measurement (enzymatic activity/volume) 21 U/L 0-55 Serum or plasma protein measurement (mass/volume) 6.7 g/dL 6.4-8.2 Serum or plasma albumin measurement (mass/volume) 3.8 g/dL 3.2-4.5 Lipase - 06/29/17 16:40 Lipase 22 U/L 8-78 Encounters ACCT No. Visit Date/Time Discharge Status Pt. Type Provider Facility Loc./Unit Complaint [id number] 06/29/2017 15:39:00 06/29/2017 18:25:00 DIS Emergency ASHIA ROJAS MD [facility] ER PAIN AFTER SURGERY [id number] 06/28/2017 07:14:00 06/28/2017 13:55:00 DIS Outpatient JOVAN CHANG DO Via [facility] CHRONIC PELVIC PAIN,ABNORMAL UTERINE BLEEDING [id number] 06/25/2017 05:36:00 06/25/2017 10:00:00 DIS Outpatient JOVAN CHANG DO [facility] PREOP CHRONIC PELVIC PAIN,ABNORMAL UTERINE BLEEDING [id number] 05/22/2017 11:58:00 05/22/2017 23:59:59 CLS Outpatient YESENIA PEPPER [facility] RAD N94.6 DYSMENORRHEA [id number] 11/08/2016 08:52:00 11/08/2016 12:50:00 DIS Outpatient JOVAN ASHRAF MD [facility] RT. KNEE TORN LAT. MENISCUS [id number] 11/07/2016 14:56:00 11/07/2016 15:33:00 DIS Outpatient JOVAN ASHRAF MD [facility] PREOP RIGHT KNEE TORN LATERAL MENISCUS [id number] 10/27/2016 09:19:00 10/27/2016 23:59:59 CLS Outpatient JOVAN ASHRAF MD [facility] RAD CHONDROMALACIA PATELLA RT M22.41 [id number] 01/28/2016 08:00:00 01/28/2016 12:11:00 DIS Outpatient JOVAN ASHRAF MD [facility] REHAB R KNEE PAIN [id number] 01/13/2016 17:10:00 01/13/2016 20:30:00 DIS Emergency STACY MENDIOLA [facility] ER FLU [id number] 08/10/2015 10:40:00 08/10/2015 15:12:00 DIS Outpatient ANAI ROMERO MD Via [facility] MISSED AB [id number] 08/09/2015 10:34:00 08/09/2015 12:56:00 DIS Outpatient ANAI ROMERO MD Via [facility] PREOP MISSED AB [id number] 08/07/2015 16:03:00 08/07/2015 18:11:00 DIS Emergency STACY MENDIOLA Via [facility] ER VAGINAL BLEEDING, 7 WKS PREG [id number] 07/22/2015 12:40:00 07/22/2015 23:59:59 CLS Outpatient ANAI ROMERO MD Via [facility] RAD ELEVATED HCG, DHEERAJ IUP, EVALUATE FOR ECTOPIC [id number] 12/16/2014 07:37:00 12/16/2014 12:25:00 DIS Outpatient JOVAN ASHRAF MD Via [facility] RIGHT KNEE TORN MENISCUS [id number] 12/11/2014 09:24:00 12/11/2014 23:59:59 CLS Outpatient JOVAN ASHRAF MD [facility] PREOP RIGHT KNEE TORN MENISCUS [id number] 11/27/2014 11:04:00 11/27/2014 23:59:59 CLS Outpatient JOVAN ASHRAF MD Via [facility] RAD RT MMT [id number] 08/08/2015 12:57:00 Document Registration [id number] 03/24/2015 09:37:00 Document Registration [id number] 11/03/2011 10:51:00 Document Registration [id number] 09/27/2011 13:23:00 Document Registration [id number] 09/13/2011 05:43:00 Document Registration [id number] 09/04/2011 10:38:00 Document Registration [id number] 08/15/2011 14:18:00 Document Registration [id number] 07/11/2011 06:19:00 Document Registration [id number] 07/10/2011 14:06:00 Document Registration [id number] 07/07/2011 11:03:00 Document Registration [id number] 06/11/2011 14:30:00 Document Registration [id number] 06/07/2011 22:00:00 Document Registration [id number] 11/27/2014 11:05:09 ACT Document Registration
[2018-07-16] MEDS ORDERED: VORT10TA (08:30)
--- NOTE | 2018-07-16 08:55 | ED Upper Extremity ---
General Chief Complaint: Upper Extremity Stated Complaint: ARM PAIN Nursing Triage Note: PT TO ROOM 6 PT CO OF R ARM PAIN FROM FALL AT 0230 THIS AM, DENIES HITTING HEAD Nursing Sepsis Screen: No Definite Risk Source: patient Exam Limitations: no limitations History of Present Illness Date Seen by Provider: July 16, 2018 Time Seen by Provider: 08:30 Initial Comments Here with report of right arm and shoulder pain after suffering a fall at about 2:30 this morning. She was helping a person who was reportedly drunk and he fell and caused her to fall with him and landed on a table on her right arm. She complains of pain afterwards especially to the area of the mid forearm and the lateral aspect of the shoulder. Pain with movement of the hand. She is able to range the shoulder but it does cause pain and she has pain to touch. She has bruises noted in the areas of concern. Denies hitting her head or loss of consciousness. Onset: this morning Severity: moderate Pain/Injury Location: right shoulder, right forearm Method of Injury: direct blow, fell Modifying Factors: Improves With Immobilization; Worse With Movement; Improves With Rest Allergies and Home Medications Allergies Coded Allergies: amoxicillin trihydrate (Verified Allergy, Unknown, HAS HAD ANCEF W/O PROBLEMS, 11/07/16) tramadol (Verified Adverse Reaction, Mild, HEADACHES, 11/07/16) Home Medications Lisdexamfetamine Dimesylate 70 Mg Capsule, 70 MG PO DAILY, (Reported) Patient Home Medication List Home Medication List Reviewed: Yes Review of Systems Constitutional: no symptoms reported Respiratory: no symptoms reported Cardiovascular: no symptoms reported Musculoskeletal: see HPI Skin: see HPI Past Ovdelzg-Rurxvf-Gwmqvx Hx Past Med/Social Hx: Reviewed Nursing Past Med/Soc Hx Patient Social History Alcohol Use: Denies Use Recreational Drug Use: No Smoking Status: Current Everyday Smoker Type Used: Cigarettes Recent Foreign Travel: No Contact w/Someone Who Travel: No Recent Infectious Disease Expo: No Recent Hopitalizations: No Immunizations Up To Date Date of Influenza Vaccine: Nov 19, 2010 Seasonal Allergies Seasonal Allergies: Yes Past Medical History Surgeries: Yes (R KNEE ARTHROSCOPY X4, c/s x2, eswl, D&C) Adenoidectomy, Section, Tonsillectomy Respiratory: Yes Asthma Cardiac: No Neurological: No : No (ABLATION) Reproductive Disorders: Yes (CPP/AUB ) Female Reproductive Disorders: Denies Sexually Transmitted Disease: No HIV/AIDS: No Kidney Stones Gastrointestinal: No Musculoskeletal: Yes (TORN LATERAL MENISCUS) Arthritis, Chronic Back Pain Endocrine: No Loss of Vision: Denies Hearing Impairment: Denies Cancer: No Psychosocial: Yes Anxiety, PTSD, Depression Integumentary: No Blood Disorders: No Adverse Reaction/Blood Tranf: No (N/A) Family Medical History Reviewed Nursing Family Hx No Pertinent Family Hx Physical Exam Vital Signs Vital Signs - First Documented 07/16/18 08:12 Temp 97.6 Pulse 90 Resp 18 B/P (MAP) 149/80 (103) Pulse Ox 98 Capillary Refill : Less Than 3 Seconds Height, Weight, BMI Height: 5'4.00" Weight: 270lbs. 0.0oz. 122.152783ka; 44.6 BMI Method:Stated General Appearance: WD/WN, no apparent distress Cardiovascular: regular rate, rhythm, no murmur Respiratory: lungs clear, normal breath sounds Shoulder: normal ROM, ecchymosis, pain, soft tissue tenderness (lateral aspect of the shoulder very tender to touch and bruising noted in that area) Elbow/Forearm: Right, ecchymosis, limited ROM, pain, soft tissue tenderness, swelling (junction of middle and distal one third the dorsum there is bruising and swelling which may be deformity. Pain with range of motion of arm.) Hand: no evidence of injury, normal ROM, Bilateral Neurologic/Psychiatric: alert, oriented x 3 Skin: warm/dry, ecchymosis Progress/Results/Core Measures Results/Orders My Orders Orders - MICHAEL BOOTH MD Shoulder, Right, 3 Views (07/16/18 08:38) Forearm, Right, 2 Views (07/16/18 08:38) Vital Signs/I&O 07/16/18 08:12 Temp 97.6 Pulse 90 Resp 18 B/P (MAP) 149/80 (103) Pulse Ox 98 Blood Pressure Mean: 103 Progress Progress Note : Progress Note Seen and evaluated. X-ray right shoulder and right forearm ordered. Patient declined pain medicine. Monitor patient. 0930: No acute findings on x-ray. Sling has been applied and ice pack given. Discharged home with return precautions. Patient verbalize understanding instructions and agreement with plan. Diagnostic Imaging Diagonstic Imaging: Xray Plain Films/CT/US/NM/MRI: other Comments NAME: CAROL SANTIAGO [facility] REC#: [id number] PT STATUS: REG ER : 1990 PHYSICIAN: MICHAEL BOOTH MD ADMIT DATE: 07/16/18/ER Signed Date of Exam: 07/16/18 FOREARM, RIGHT, 2 VIEWS INDICATION: Pain post fall today. TECHNIQUE: 2 views of the right forearm. CORRELATION STUDY: None FINDINGS: The radius and ulna have an unremarkable appearance. The visualized portions of the elbow and wrist are unremarkable. Soft tissues are unremarkable. IMPRESSION: 1. Negative for acute bony abnormality of the forearm. Dictated by: Dictated on workstation # [id number] Dict: 07/16/18927 Trans: 07/16/18928 Interpreted by: JUDI MOON DO Electronically signed by: JUDI MOON DO 07/16/18928 Diagonstic Imaging: Xray Plain Films/CT/US/NM/MRI: other Comments [facility] [place] NAME: CAROL SANTIAGO [facility] REC#: [id number] PT STATUS: REG ER : 1990 PHYSICIAN: MICHAEL BOOTH MD ADMIT DATE: 07/16/18/ER Draft Date of Exam:07/16/18 SHOULDER, RIGHT, 3 VIEWS INDICATION: Pain FINDINGS: Three-view right shoulder show no fracture, dislocation or acute appearing articular incongruity. IMPRESSION: No acute appearing abnormality. Dictated on workstation # [id number] Dict: 07/16/18911 Trans: 07/16/18915 [id number] Interpreted by: MAHIN BOSS Electronically signed by: Departure Impression Primary Impression: Forearm contusion Qualified Codes: S50.11XA - Contusion of right forearm, initial encounter Additional Impression: Contusion of shoulder, right Qualified Codes: S40.011A - Contusion of right shoulder, initial encounter Disposition: 01 HOME, SELF-CARE Condition: Stable Departure-Patient Inst. Decision time for Depature: 08:59 Referrals: RIGOBERTO STARKS MD (PCP/Family) Primary Care Physician Patient Instructions: Contusion (DC), Shoulder Pain (DC) Add. Discharge Instructions: All discharge instructions reviewed with patient and/or family. Voiced understanding. Use sling for comfort for the next couple days and then as needed. Use ice pack to affected area 20 minutes per hour as needed for pain and swelling. Follow-up with your Dr. in a few days for recheck. You may take ibuprofen 800 mg every 8 hours as needed for pain. You may also take Tylenol/acetaminophen 1000 mg every 8 hours as needed for pain. Space return for worse pain, weakness, swelling, numbness or other concerns as needed. MICHAEL BOOTH MD July 16, 2018 08:54
--- NOTE | 2018-07-16 09:07 | NUR ---
ICE BAG AND SLING APPLIED TO R ARM
--- NOTE | 2018-07-16 09:16 | Diagnostic Imaging Report ---
INDICATION: Pain FINDINGS: Three-view right shoulder show no fracture, dislocation or acute appearing articular incongruity. IMPRESSION: No acute appearing abnormality. Dictated by: Dictated on workstation # [id number]
--- NOTE | 2018-07-16 09:32 | Diagnostic Imaging Report ---
INDICATION: Pain post fall today. TECHNIQUE: 2 views of the right forearm. CORRELATION STUDY: None FINDINGS: The radius and ulna have an unremarkable appearance. The visualized portions of the elbow and wrist are unremarkable. Soft tissues are unremarkable. IMPRESSION: 1. Negative for acute bony abnormality of the forearm. Dictated by: Dictated on workstation # [id number]
[2018-07-16 09:53] VITALS: BP 149/80
== END 2018-07-16 09:52 | disposition home or self-care (01) ==
LOC: EDUNIT# 08:07 → ER 08:10
DX: S40.011A Contusion of right shoulder, initial encounter (principal); S50.11XA Contusion of right forearm, initial encounter; J45.909 Unspecified asthma, uncomplicated; F41.9 Anxiety disorder, unspecified; F43.10 Post-traumatic stress disorder, unspecified; F32.9 Major depressive disorder, single episode, unspecified; F17.210 Nicotine dependence, cigarettes, uncomplicated; Z88.0 Allergy status to penicillin; Z88.6 Allergy status to analgesic agent; Z87.442 Personal history of urinary calculi; Z90.89 Acquired absence of other organs; Z98.890 Other specified postprocedural states; W19.XXXA Unspecified fall, initial encounter
CPT/HCPCS: 73030; 73090

== ENCOUNTER 2018-12-04 08:05 | Emergency (ER) | payer MEDICAID ==
[~2018-12-04] VITALS: Ht 162.5 cm; Wt 127.2 kg
[~2018-12-04 08:05] MED LIST changes: -DULO30CA48 PO; +DULO30CA49 PO; +VORT10TA
[2018-12-04 09:24] LABS: BASOPHILS % (AUTO) 0 % (0-10); EOSINOPHILS # (AUTO) 0.1 10^3/uL (0.0-0.3); EOSINOPHILS % (AUTO) 2 % (0-10); HEMATOCRIT 43 % (35-52); HEMOGLOBIN 14.4 G/DL (11.5-16.0); LYMPHOCYTES # (AUTO) 2.1 X 10^3 (1.0-4.0); LYMPHOCYTES % (AUTO) 28 % (12-44); MEAN CORPUSCULAR HEMOGLOBIN 30 PG (25-34); MEAN CORPUSCULAR HGB CONC 34 G/DL (32-36); MEAN CORPUSCULAR VOLUME 88 FL (80-99); MEAN PLATELET VOLUME 9.7 FL (7.4-10.4); MONOCYTES # (AUTO) 0.4 X 10^3 (0.0-1.0); MONOCYTES % (AUTO) 6 % (0-12); NEUTROPHILS # (AUTO) 4.9 X 10^3 (1.8-7.8); NEUTROPHILS % (AUTO) 65 % (42-75); PLATELET COUNT 237 10^3/uL (130-400); RED CELL DISTRIBUTION WIDTH 12.7 % (10.0-14.5); WHITE BLOOD COUNT 7.6 10^3/uL (4.3-11.0)
[2018-12-04 09:36] LABS: ALANINE AMINOTRANSFERASE 25 U/L (0-55); ALBUMIN 3.9 GM/DL (3.2-4.5); ALKALINE PHOSPHATASE 48 U/L (40-136); BILIRUBIN,TOTAL 0.4 MG/DL (0.1-1.0); BUN/CREATININE RATIO 21; CALCIUM 9.4 MG/DL (8.5-10.1); CARBON DIOXIDE 25 MMOL/L (21-32); CHLORIDE 107 MMOL/L (98-107); CREATININE SERUM 0.77 MG/DL (0.60-1.30); GFR ESTIMATED > 60; GLUCOSE 99 MG/DL (70-105); POTASSIUM 4.5 MMOL/L (3.6-5.0); SODIUM 140 MMOL/L (135-145); TOTAL PROTEIN 6.8 GM/DL (6.4-8.2)
[2018-12-04 09:58] LABS: BILIRUBIN,URINE NEGATIVE (NEGATIVE); CLARITY,URINE CLEAR; COLOR,URINE YELLOW; GLUCOSE, URINE (UA) NEGATIVE (NEGATIVE); KETONES,URINE NEGATIVE (NEGATIVE); LEUKOCYTE ESTERASE ,URINE NEGATIVE (NEGATIVE); NITRITE,URINE NEGATIVE (NEGATIVE); PH,URINE 6 (5-9); PROTEIN,URINE NEGATIVE (NEGATIVE)
[2018-12-04 10:21] LABS: BACTERIA,URINE MODERATE /HPF
[2018-12-04] MEDS ORDERED: NS IV 1000 ML 1,000 ML IV SCH (10:45)
[2018-12-04] MEDS ORDERED: KETOROLAC 30 MG/ML VIAL IVP ONE (10:45)
[2018-12-04 10:55] LABS: AMPHETAMINE SCREEN, URINE NEGATIVE (NEGATIVE); BARBITURATE SCREEN URINE NEGATIVE (NEGATIVE); BENZODIAZEPINES SCREEN URINE NEGATIVE (NEGATIVE); CANNABINOID SCREEN, URINE NEGATIVE (NEGATIVE); COCAINE SCREEN URINE NEGATIVE (NEGATIVE); METHADONE STAT NEGATIVE (NEGATIVE); METHAMPHETAMINE SCREEN URINE S NEGATIVE (NEGATIVE); OPIATE SCREEN URINE NEGATIVE (NEGATIVE); OXYCODONE STAT NEGATIVE (NEGATIVE); PROPOXYPHENE STAT NEGATIVE (NEGATIVE); TRICYCLIC ANTIDEPRESSANTS SCRE NEGATIVE (NEGATIVE)
--- NOTE | 2018-12-04 10:59 | ED Abdominal Pain ---
General Chief Complaint: Abdominal/GI Problems Stated Complaint: PASSING KIDNEY STONES Nursing Triage Note: Pt ambulatory to ED with c/o lower abd pain x3 days. She states the pain originated in her lower back. Has hx of kidney infections, stones, UTI's. Sepsis Screen: No Definite Risk Source of Information: Patient Exam Limitations: No Limitations History of Present Illness Date Seen by Provider: Dec 04, 2018 Time Seen by Provider: 10:58 Initial Comments To ER with reports of possible passing kidney stone. Beginning last night she had some midline low back pain midline suprapubic pain, right low back pain. She has blood in her urine Timing/Duration: 1-2 Days Severity/Quality: Moderate Location: Suprapubic Radiation: No Radiation Activities at Onset: None Associated Symptoms: Denies Symptoms Allergies and Home Medications Allergies Coded Allergies: amoxicillin trihydrate (Verified Allergy, Unknown, HAS HAD ANCEF W/O PROBLEMS, 11/07/16) tramadol (Verified Adverse Reaction, Mild, HEADACHES, 11/07/16) Home Medications Lisdexamfetamine Dimesylate 70 Mg Capsule, 70 MG PO DAILY, (Reported) Patient Home Medication List Home Medication List Reviewed: Yes Review of Systems Review of Systems Constitutional: see HPI EENTM: No Symptoms Reported Respiratory: No Symptoms Reported Cardiovascular: No Symptoms Reported Gastrointestinal: See HPI, Abdominal Pain, Nausea Genitourinary: See HPI Musculoskeletal: no symptoms reported Skin: no symptoms reported Psychiatric/Neurological: No Symptoms Reported Endocrine: No Symptoms Reported Hematologic/Lymphatic: No Symptoms Reported Past Lhnjdzt-Vjgetm-Qgsdim Hx Patient Social History Alcohol Use: Denies Use Recreational Drug Use: No Type Used: Cigarettes Recent Foreign Travel: No Contact w/Someone Who Travel: No Recent Infectious Disease Expo: No Recent Hopitalizations: No Physical Abuse: No Sexual Abuse: No Mistreated: No Fear: No Immunizations Up To Date Date of Influenza Vaccine: Nov 19, 2010 Seasonal Allergies Seasonal Allergies: Yes Past Medical History Surgeries: Yes (R KNEE ARTHROSCOPY X4, c/s x2, eswl, D&C) Adenoidectomy, Section, Tonsillectomy Respiratory: Yes Asthma Cardiac: No Neurological: No Reproductive Disorders: Yes (CPP/AUB ) Female Reproductive Disorders: Denies Sexually Transmitted Disease: No HIV/AIDS: No Kidney Stones Gastrointestinal: No Musculoskeletal: Yes (TORN LATERAL MENISCUS) Arthritis, Chronic Back Pain Endocrine: No Loss of Vision: Denies Hearing Impairment: Denies Cancer: No Psychosocial: Yes Anxiety, PTSD, Depression Integumentary: No Blood Disorders: No Adverse Reaction/Blood Tranf: No (N/A) Family Medical History No Pertinent Family Hx Physical Exam Vital Signs Vital Signs - First Documented 12/04/18 08:28 Temp 37.4 Pulse 92 Resp 14 B/P (MAP) 148/98 (115) Pulse Ox 98 Capillary Refill : Less Than 3 Seconds Height/Weight/BMI Height: 5'4.00" Weight: 270lbs. 0.0oz. 122.264692hr; 48.00 BMI Method:Stated General Appearance: WD/WN, no apparent distress HEENT: PERRL/EOMI, normal ENT inspection Respiratory: no respiratory distress, no accessory muscle use Gastrointestinal: normal bowel sounds, non tender, soft Extremities: normal range of motion, non-tender Neurologic/Psychiatric: alert, normal mood/affect, oriented x 3 Skin: normal color, warm/dry Progress/Results/Core Measures Results/Orders Lab Results Laboratory Tests Test 12/04/18 08:39 12/04/18 09:37 Range/Units White Blood Count 7.6 4.3-11.0 10^3/uL Red Blood Count 4.82 4.35-5.85 10^6/uL Hemoglobin 14.4 11.5-16.0 G/DL Hematocrit 43 35-52 % Mean Corpuscular Volume 88 80-99 FL Mean Corpuscular Hemoglobin 30 25-34 PG Mean Corpuscular Hemoglobin Concent 34 32-36 G/DL Red Cell Distribution Width 12.7 10.0-14.5 % Platelet Count 237 130-400 10^3/uL Mean Platelet Volume 9.7 7.4-10.4 FL Neutrophils (%) (Auto) 65 42-75 % Lymphocytes (%) (Auto) 28 12-44 % Monocytes (%) (Auto) 6 0-12 % Eosinophils (%) (Auto) 2 0-10 % Basophils (%) (Auto) 0 0-10 % Neutrophils # (Auto) 4.9 1.8-7.8 X 10^3 Lymphocytes # (Auto) 2.1 1.0-4.0 X 10^3 Monocytes # (Auto) 0.4 0.0-1.0 X 10^3 Eosinophils # (Auto) 0.1 0.0-0.3 10^3/uL Basophils # (Auto) 0.0 0.0-0.1 10^3/uL Sodium Level 140 135-145 MMOL/L Potassium Level 4.5 3.6-5.0 MMOL/L Chloride Level 107 98-107 MMOL/L Carbon Dioxide Level 25 21-32 MMOL/L Anion Gap 8 5-14 MMOL/L Blood Urea Nitrogen 16 7-18 MG/DL Creatinine 0.77 0.60-1.30 MG/DL Estimat Glomerular Filtration Rate > 60 BUN/Creatinine Ratio 21 Glucose Level 99 70-105 MG/DL Calcium Level 9.4 8.5-10.1 MG/DL Corrected Calcium 9.5 8.5-10.1 MG/DL Total Bilirubin 0.4 0.1-1.0 MG/DL Aspartate Amino Transf (AST/SGOT) 14 5-34 U/L Alanine Aminotransferase (ALT/SGPT) 25 0-55 U/L Alkaline Phosphatase 48 40-136 U/L Total Protein 6.8 6.4-8.2 GM/DL Albumin 3.9 3.2-4.5 GM/DL Serum Test, Qualitative NEGATIVE NEGATIVE Urine Color YELLOW Urine Clarity CLEAR Urine pH 6 5-9 Urine Specific Stevenson 1.015 L 1.016-1.022 Urine Protein NEGATIVE NEGATIVE Urine Glucose (UA) NEGATIVE NEGATIVE Urine Ketones NEGATIVE NEGATIVE Urine Nitrite NEGATIVE NEGATIVE Urine Bilirubin NEGATIVE NEGATIVE Urine Urobilinogen NORMAL NORMAL MG/DL Urine Leukocyte Esterase NEGATIVE NEGATIVE Urine RBC (Auto) 3+ H NEGATIVE Urine RBC 10-25 H /HPF Urine WBC 2-5 /HPF Urine Squamous Epithelial Cells 10-25 H /HPF Urine Crystals NONE /LPF Urine Bacteria MODERATE H /HPF Urine Casts NONE /LPF Urine Mucus NEGATIVE /LPF Urine Culture Indicated YES Urine Opiates Screen NEGATIVE NEGATIVE Urine Oxycodone Screen NEGATIVE NEGATIVE Urine Methadone Screen NEGATIVE NEGATIVE Urine Propoxyphene Screen NEGATIVE NEGATIVE Urine Barbiturates Screen NEGATIVE NEGATIVE Ur Tricyclic Antidepressants Screen NEGATIVE NEGATIVE Urine Phencyclidine Screen NEGATIVE NEGATIVE Urine Amphetamines Screen NEGATIVE NEGATIVE Urine Methamphetamines Screen NEGATIVE NEGATIVE Urine Benzodiazepines Screen NEGATIVE NEGATIVE Urine Cocaine Screen NEGATIVE NEGATIVE Urine Cannabinoids Screen NEGATIVE NEGATIVE My Orders Orders - SHAI TORRES APRN Drug Screen Stat (Urine) (12/04/18 10:37) Ketorolac Injection (Toradol Injection) (12/04/18 10:45) Ns Iv 1000 Ml (Sodium Chloride 0.9%) (12/04/18 10:45) Ct Abd/Pelvis Wo(Kidney Stone) (12/04/18 10:37) Medications Given in ED Current Medications Medications Dose Ordered Sig/Ree Route Start Time Stop Time Status Last Admin Dose Admin Ketorolac Tromethamine 30 mg ONCE ONCE IVP 12/04/18 10:45 12/04/18 10:46 DC 12/04/18 10:50 30 MG Vital Signs/I&O 12/04/18 08:28 Temp 37.4 Pulse 92 Resp 14 B/P (MAP) 148/98 (115) Pulse Ox 98 Blood Pressure Mean: 115 Departure Communication (Admissions) She denies any vaginal discharge or concern for pelvic infection. She'll return for any vaginal discharge or fevers or worsening pain. Discussed with her the need to follow-up for repeat imaging of the ovarian cyst, ultrasound in the next couple of months. Impression Primary Impression: Lower abdominal pain Disposition: 01 HOME, SELF-CARE Condition: Stable Departure-Patient Inst. Decision time for Depature: 11:29 Referrals: RIGOBERTO STARKS MD (PCP/Family) Primary Care Physician Patient Instructions: No Instuctions Given Add. Discharge Instructions: 1. Return to ER for any concerns 2. Follow-up with your doctor All discharge instructions reviewed with patient and/or family. Voiced understanding. Scripts Hydrocodone/Acetaminophen (Hobson 5-325 Tablet) 1 Each Tablet 1 TAB PO Q6H for Pain MDD 10 TABS for 7 Days, #14 TAB Prov: SHAI TORRES APRN 12/04/18 SHAI TORRES APRN Dec 04, 2018 10:59
--- NOTE | 2018-12-04 11:14 | Diagnostic Imaging Report ---
PROCEDURE: CT urinary tract, rule out kidney stone. TECHNIQUE: Multiple contiguous axial images were obtained through the abdomen and pelvis without the use of intravenous contrast. Auto Exposure Controls were utilized during the CT exam to meet ALARA standards for radiation dose reduction. INDICATION: Pelvic pain and hematuria. COMPARISON: Correlation is made with prior CT from 08/15/2011. FINDINGS: The lung bases are clear. No discrete liver mass is identified. The gallbladder is unremarkable. No biliary ductal dilatation is seen. The pancreas and spleen are unremarkable. No adrenal mass is detected. Tiny nonobstructing calculi are identified in both kidneys. No definite ureteral calculi or hydronephrosis is identified. No bladder calculi are seen. The aorta is non-aneurysmal. The small and large bowel loops are normal caliber. No obstruction is seen. The appendix is unremarkable in the right lower quadrant. There is a small fat-containing umbilical hernia. No free fluid is seen in the abdomen or pelvis. There is a cyst in the left adnexa measuring 3.9 cm consistent with an ovarian cyst. Uterus is unremarkable. IMPRESSION: 1. Bilateral nonobstructing nephrolithiasis. 2. 3.9 cm left ovarian cyst. 3. Small fat-containing umbilical hernia. Dictated by: Dictated on workstation # [id number]
[2018-12-04] MEDS ORDERED: HYDR-4226 PO (11:32)
[2018-12-04 11:46] VITALS: BP 148/99
== END 2018-12-04 11:46 | disposition home or self-care (01) ==
LOC: EDUNIT# 08:05 → ER 08:06
DX: R10.30 Lower abdominal pain, unspecified (principal); J45.909 Unspecified asthma, uncomplicated; F41.9 Anxiety disorder, unspecified; F43.10 Post-traumatic stress disorder, unspecified; F32.9 Major depressive disorder, single episode, unspecified; Z88.1 Allergy status to other antibiotic agents; Z88.5 Allergy status to narcotic agent; Z90.89 Acquired absence of other organs; Z87.442 Personal history of urinary calculi
CPT/HCPCS: 36415; 74176; 80053; 80306; 81000; 84703; 85025; 87088

== ENCOUNTER → 2018-12-16 | Outpatient (CLI) | payer MEDICAID ==
[~2018-12-16] MED LIST changes: +HYDR-4226 PO
--- NOTE | 2018-12-16 14:43 | Diagnostic Imaging Report ---
PROCEDURE: US Non-ob pelvis comp/trans. TECHNIQUE: Multiple realtime grayscale images were obtained of the pelvis in various projections endovaginally. Transabdominal imaging was also performed. INDICATION: Acute pelvic pain and ovarian cyst. FINDINGS: The uterus measures 7.4 x 5.3 x 3.6 cm. Endometrium is 4 mm in thickness. There is a cyst in the uterus on the right side submucosal location measuring approximately 10 mm in diameter. There is one on the left side similar in size measuring 10-11 mm in size. The right ovary measures 2.4 x 1.5 x 1.5 cm and the left ovary measures 2.9 x 3.1 x 1.9 cm. Left ovary does contain a 2.5 x 1.5 x 1.7 cm cyst with internal echoes suggestive of a hemorrhagic cyst. No free fluid is seen. IMPRESSION: 1. Hemorrhagic left ovarian cyst. 2. Small intrauterine submucosal cysts, as described. No other abnormality is seen. Dictated by: Dictated on workstation # [id number]
== END ==
LOC: RAD 12:55
PROVIDERS: ATTEND Obstetrics & Gynecology
DX: N83.202 Unspecified ovarian cyst, left side (principal); N85.8 Other specified noninflammatory disorders of uterus
CPT/HCPCS: 76830; 76856

== ENCOUNTER 2018-12-24 13:30 | Outpatient (CLI) | payer MEDICAID ==
[~2018-12-24] VITALS: Ht 162 cm; Wt 127.2 kg
== END 2018-12-24 14:29 | disposition home or self-care (01) ==
LOC: PREOP 13:30
PROVIDERS: ATTEND Obstetrics & Gynecology
DX: Z01.818 Encounter for other preprocedural examination (principal)

== ENCOUNTER 2018-12-30 07:42 | Inpatient (IN) | payer MEDICAID ==
[~2018-12-30] VITALS: Ht 162 cm; Wt 127.2 kg
[2018-12-30] VITALS (11 sets, daily range): BP systolic 109–138; BP diastolic 55–89
[2018-12-30] MEDS ORDERED: metroNIDAZOLE 500MG/100ML IVPB 100 ML IV ONE (08:00)
[2018-12-30] MEDS ORDERED: ceFAZolin 2 GM IV Premixed 50 ML IV ONE (08:00)
--- NOTE | 2018-12-30 08:00 | Progress Note-Pre Operative ---
Pre-Operative Progress Note H&P Reviewed The H&P was reviewed, patient examined and no changes noted. Date Seen by Provider: Dec 30, 2018 Time Seen by Provider: 08:00 Date H&P Reviewed: Dec 30, 2018 Time H&P Reviewed: 08:00 Pre-Operative Diagnosis: CPP, Dyspareunia JOVAN CHANG DO Dec 30, 2018 08:00 POS
[2018-12-30] MEDS ORDERED: LACTATED RINGERS 1,000 ML IV PRN (08:06)
[2018-12-30 08:14] LABS: BASOPHILS % (AUTO) 0 % (0-10); EOSINOPHILS # (AUTO) 0.1 10^3/uL (0.0-0.3); EOSINOPHILS % (AUTO) 1 % (0-10); HEMATOCRIT 43 % (35-52); LYMPHOCYTES % (AUTO) 26 % (12-44); MEAN CORPUSCULAR HEMOGLOBIN 30 PG (25-34); MEAN CORPUSCULAR HGB CONC 35 G/DL (32-36); MEAN CORPUSCULAR VOLUME 88 FL (80-99); MEAN PLATELET VOLUME 9.3 FL (7.4-10.4); MONOCYTES # (AUTO) 0.4 X 10^3 (0.0-1.0); MONOCYTES % (AUTO) 6 % (0-12); NEUTROPHILS # (AUTO) 5.2 X 10^3 (1.8-7.8); NEUTROPHILS % (AUTO) 68 % (42-75); PLATELET COUNT 256 10^3/uL (130-400); RED CELL DISTRIBUTION WIDTH 12.7 % (10.0-14.5); WHITE BLOOD COUNT 7.7 10^3/uL (4.3-11.0)
[2018-12-30] MEDS ORDERED: ONDANSETRON 4 MG/2 ML (SDV) Z0FRAN IV ONE (08:15)
[2018-12-30] MEDS ORDERED: FAMOTIDINE 20MG/2ML IV (PEPCID) IV ONE (08:15)
[2018-12-30] MEDS ORDERED: MIDAZOLAM 2 MG/2 ML (VERSED) VIAL IV ONE (08:15)
[2018-12-30] MEDS: LACTATED RINGERS 1,000 ML IV PRN ×3 (08:24→11:40)
[2018-12-30] MEDS ORDERED: LORA-404 PO (09:08)
[2018-12-30] MEDS ORDERED: VORT10TA PO (09:08)
[2018-12-30] MEDS ORDERED: HYDR-34 PO (09:25)
[2018-12-30] MEDS ORDERED: IBUP-1773 PO (09:25)
[2018-12-30] MEDS ORDERED: DOCU-143 PO (09:25)
[2018-12-30] MEDS ORDERED: BUPIVACAINE 0.25% 30 ML (SENSORCAINE) VIAL ONE (09:25)
--- NOTE | 2018-12-30 09:26 | Discharge Inst-Women's Service ---
Discharge Inst-Women's Serv Depart Medication/Instructions New, Converted or Re-Newed RX: RX on Chart Problems Reviewed?: Yes Consults/Follow Up Additional Follow Up: Yes Orders/Referrals Dr Lugo in 7-10 days and in 8 weeks Activity Activity: Activity as Tolerated Driving Instructions: No Driving for 1 Week NO SMOKING: NO SMOKING Nothing Inside Vagina: No Douching, No Jerome, No Tampons Diet Discharge Diet: No Restrictions Symptoms to Report to : Bleeding Excessive, Pain Increased, Fever Over 101 Degrees F, Vaginal Bleeding Increase, Questions/Concerns For Any Problems or Questions: Contact Your Physician Skin/Wound Care Infection Signs and Symptoms: Increased Redness, Foul Odor of Wound, Increased Drainage, Skin Itchy or Has a Rash, Increased Swelling, Temperature Above 101 F Operative Area Clean and Dry: Keep Incision Clean/Dry Stitches/[place]/Dermabond: Dermabond, Care of Stitches Bathing Instructions: JOVAN Echavarria DO Dec 30, 2018 09:26 POS
[2018-12-30] MEDS ORDERED: SIMETHICONE 80 MG (MYLICON) CHEW PO PRN (09:30)
[2018-12-30] MEDS ORDERED: ONDANSETRON 4 MG/2 ML (SDV) Z0FRAN IV PRN (09:30)
[2018-12-30] MEDS ORDERED: ANTACID SUSP 30 ML UDC (MYLANTA) PO PRN (09:30)
[2018-12-30] MEDS ORDERED: ZOLPIDEM 5 MG (AMBIEN) TAB PO PRN (09:30)
[2018-12-30] MEDS ORDERED: DOCUSATE SODIUM 100 MG (COLACE) CAP PO PRN (09:30)
[2018-12-30] MEDS ORDERED: CHLORASEPTIC LOZENGE MM PRN (09:30)
[2018-12-30] MEDS ORDERED: SEVOFLURANE (ULTANE) 15 ML INHAL SOLN ONE ×5 (09:36→12:16)
[2018-12-30] MEDS ORDERED: ROCURONIUM 10 MG/ML 5 ML SYRINGE IV ONE ×2 (09:36→11:19)
[2018-12-30] MEDS ORDERED: fentaNYL INJECTION 100 MCG/2 ML AMP ONE ×2 (09:36→10:48)
[2018-12-30] MEDS ORDERED: proPOfol 200 MG/20 ML (DIPRIVAN) VIAL IV ONE (09:36)
[2018-12-30] MEDS ORDERED: LIDOCAINE PF 2% 5 ML (XYLOCAINE) VIAL ONE (09:36)
[2018-12-30] MEDS ORDERED: DEXAMETHASONE 10 MG/ML (DECADRON) 1 ML VIAL ONE (09:36)
[2018-12-30] MEDS ORDERED: ONDANSETRON 4 MG/2 ML (SDV) Z0FRAN ONE (09:36)
[2018-12-30] MEDS ORDERED: MIDAZOLAM 2 MG/2 ML (VERSED) VIAL ONE (10:09)
[2018-12-30] MEDS ORDERED: DESFLURANE (SUPRANE) 15 ML INHAL SOLN ONE ×8 (10:38→12:44)
[2018-12-30] MEDS ORDERED: NEOSTIGMINE 3 MG/3 ML VIAL ONE (12:25)
[2018-12-30] MEDS ORDERED: GLYCOPYRROLATE 0.2 MG/ML (ROBINUL) 2 ML VIAL ONE (12:25)
[2018-12-30] MEDS ORDERED: KETOROLAC 30 MG/ML VIAL ONE (12:26)
[2018-12-30] MEDS ORDERED: morphine INJ 10 MG/ML 1ML (SYR OR VIAL) ONE (12:28)
[2018-12-30] MEDS: KETOROLAC 30 MG/ML VIAL IV PRN ×2 (12:30→18:54)
[2018-12-30] MEDS ORDERED: HYDROmorphone 2 MG/ML VIAL (DILAUDID) IV PRN (13:00)
[2018-12-30] MEDS ORDERED: morphine INJ 10 MG/ML 1ML (SYR OR VIAL) IVP ONE (13:15)
[2018-12-30] MEDS ORDERED: ONDANSETRON 4 MG/2 ML (SDV) Z0FRAN IVP PRN (13:15)
[2018-12-30] MEDS ORDERED: HYDROmorphone 2 MG/ML VIAL (DILAUDID) IV ONE (13:15)
[2018-12-30] MEDS ORDERED: PROMETHAZINE INJ 25 MG/ML (PHENERGAN) AMP IVP ONE (13:15)
[2018-12-30] MEDS ORDERED: MEPERIDINE (DEMEROL) INJ 50 MG/ML IVP ONE (13:15)
[2018-12-30] MEDS ORDERED: HYDROmorphone 2 MG/ML VIAL (DILAUDID) ONE (13:16)
--- NOTE | 2018-12-30 14:10 | NUR ---
CAROL SANTIAGO presented to unit via BED from RECOVERY, accompanied by Luis Manuel PEMBERTON RN AFTER HAVING SURGERY. VS taken. CAROL SANTIAGO oriented to bed controls, call light, TV, heat, and A/C controls. REPORT RECEIVED.
--- NOTE | 2018-12-30 14:58 | Anesthesia-General Post-Op ---
General Patient Condition Mental Status/LOC: Same as Preop Cardiovascular: Satisfactory Nausea/Vomiting: Absent Respiratory: Satisfactory Pain: Controlled Complications: Absent Post Op Complications Complications None Follow Up Care/Instructions Patient Instructions None needed. Anesthesia/Patient Condition Patient Condition Patient is doing well, no complaints, stable vital signs, no apparent adverse anesthesia problems. No complications reported per nursing. JAMES ALVARADO CRNA Dec 30, 2018 14:58 POS
[2018-12-30] MEDS: HYDROcodone/APAP 7.5 MG/325 MG (LORTAB, LORCET PLUS) TABLET PO PRN ×2 (15:32→20:51)
[2018-12-30] MEDS: LACTATED RINGERS 1,000 ML IV SCH (16:31)
--- NOTE | 2018-12-30 21:03 | OPERATIVE REPORT ---
DATE OF SERVICE: PREOPERATIVE DIAGNOSES: 1. A 28-year-old female with chronic pelvic pain. 2. Dyspareunia. 3. Abnormal uterine bleeding. POSTOPERATIVE DIAGNOSES: 1. A 28-year-old female with chronic pelvic pain. 2. Dyspareunia. 3. Abnormal uterine bleeding. PROCEDURE: Failed robotic-assisted total laparoscopic hysterectomy converted to laparotomy and total abdominal hysterectomy. SURGEON: Moe Lugo DO PLANT MECHANIC: Kecia Joseph DNP, who was necessary for retraction of vital structures throughout the procedure. ANESTHESIA: General endotracheal. ESTIMATED BLOOD LOSS: 150 mL. URINE OUTPUT: 40 mL clear at the end of the procedure. FLUIDS: 2200 mL lactated Ringer's solution. FINDINGS: Multiple pelvic adhesions of the vesicouterine peritoneum and posterior cul-de-sac as well as adhesions of the ovary, grossly normal appearing bilateral ovaries. SPECIMEN SENT: Uterus. INDICATIONS FOR PROCEDURE: This 20-year-old female who had previously undergone bilateral salpingectomy has been seen in my office for the past two years. She had some heavy bleeding issues about 18 months ago that was treated with an endometrial ablation. She was periodically happy with the results of the endometrial ablation; however, progressively the bleeding started to get worse again and now the patient describing significant pelvic pain that are occurring with intercourse and sometimes at random, especially when she was having bleeding issues. I discussed with the patient much more conservative options of managing this including a D and C, also considering if there is underlying endometriosis, suppression of endometriosis; however, the patient is not interested in these forms of controlling it as she has tried multiple attempts in the past. Prior to being under my care, she had tried multiple treatment modalities for both the bleeding and the pain, none of which were working. I discussed with the patient proceeding with laparoscopy. I did approach this laparoscopically; however, we did review the risk of laparotomy, the risk of bleeding, infection, damaging surrounding structures including, but not limited to bowel, bladder, ureter, kidneys, possible need for reoperation, postoperative complications that could occur, change in recovery timeframe with laparotomy, risk from anesthesia, possible need for blood transfusion and even . After everything was discussed with the patient in detail, consent was obtained in the preoperative area and the patient was taken to the operating room. OPERATIVE REPORT IN DETAIL: Once in the operating room, anesthesia was found to be adequate, placed in dorsal lithotomy position, prepped and draped in normal sterile fashion. Timeout was performed and anesthesia, Teixeira catheter was placed using sterile technique. A weighted speculum was inserted in the patient's vagina. Right angle retractor was used to visualize the cervix. It was grasped at 12 o'clock position using a long Allis clamp and 0 Vicryl suture was placed through the anterior lip of the cervix and the Allis clamp was then removed. 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 A 6 cm LYUDMILA uterine manipulator tip and a 3.5 cm colpotomy ring is assembled and the manipulator tip was placed within the cervix; however, I am unable to deploy the balloon. I advanced the colpotomy ring around the vaginal fornix and secured with my suture that was in the anterior lip of the cervix and this was secured to the LYUDMILA uterine manipulator. After this was in place, I am able to appreciate some manipulation on bimanual examination. I removed all the other instruments from the patient's vagina, performed change of gloves obtained my attention to the abdomen where infraumbilically I infiltrated this area using 0.25% Marcaine. I made an 8 mm incision with a knife and directed Veress needle through the incision until intraperitoneal placement was confirmed using saline drop test. Opening pressure of 6 mmHg was noted proceeded to max pressure of 15 mmHg, at which point I removed the Veress needle and introduced an 8 mm blunt da Jose Daniel camera trocar. Once this was in place, I am able to confirm intraperitoneal placement using the da Jose Daniel laparoscope. There was no evidence of damage upon entry. A brief scan of the upper abdominal anatomy appears to be normal. There are filmy adhesions throughout the lower abdomen below the umbilicus. I then placed two lateral trocars using both 8 mm trocars approximately 8 cm lateral to my infraumbilical trocar. Once these were placed, they were placed in similar fashion, I bring the da Jose Daniel robot and docked in appropriate fashion placing the vessel sealer in the left hand and monopolar rajani in the right hand. I began the case by freeing up the adhesions, which were difficult to take down due to dense adhesions of the vesicouterine peritoneum, unable to use tactile sensation to discern bladder involvement or ureteral involvement in the lateral pelvic sidewall and there was distortion of the anatomy that distortion of the anatomy makes it very difficult for me to proceed with the case laparoscopically. I do attempt to take down the round ligament as well as the uteroovarian ligament with the vessel sealer and I am able to successfully do so, however, as I got closer to the cardinal ligament, I run into the vessels and vasculature that is not in appropriate placement and decided to proceed with the case via laparotomy. The da Jose Daniel robot was then undocked and the laparoscopic instruments were removed. I scrubbed back into the case and proceeded with making a Pfannenstiel skin incision through a previously existing scar using knife and carried down to underlying fascia using Bovie cautery. Fascial incision extended laterally using Bovie cautery. Superior aspect of fascial incision was grasped with Winnie clamps, tented up and dissected off the underlying rectus muscles. The inferior aspect of the fascial incision was then grasped with Winnie clamps, tented up and dissected off the underlying rectus muscles. Rectus muscle was then dissected down the midline using Edouard scissors, which exposed the peritoneum, which I entered bluntly and extended using blunt traction. Zander ring retractor was placed in the peritoneal incision, which offers excellent lateral sidewall retraction. I then able to identify the trocars, which were placed laparoscopically and removed them and ensuring that there is no damage from removal of these. I then am able to grasp the uterus itself after the patient placed in deep Trendelenburg, I am able to visualize, it was grasped using long Pean on both sides. I then continued my dissection, I am able to palpate laterally the vasculature as well as palpate the ureter, pelvic sidewall. I performed the following dissection bilaterally. I grasped the remaining cardinal ligament, I bipolar cauterized and transected using a LigaSure. I then am able to palpate the anterior vaginal cuff and the posterior vaginal cuff of the LYUDMILA uterine manipulator ring. I created a colpotomy at 12 o'clock and 6 o'clock position using the Bovie cautery and took this circumferentially amputating the cervix from the vaginal cuff. I grasped the vaginal cuff as I go with Winnie clamps in order to keep the vagina from retracting. After the vagina isolated, I am able to reapproximate the lateral vaginal apices using 0 Vicryl suture in a [id number] fashion colposuspending the uterosacral ligaments. The remainder of the vaginal cuff is closed using interrupted 0 Vicryl sutures in a hemostatic fashion [id number]. Once the vaginal cuff was reapproximated, I evaluate the remainder of the pelvic anatomy, which was hemostatic and appears to be without any residual damage. I then covered the vaginal cuff using Surgicel and FloSeal and removed all of the pack sponges. I then proceeded with removing the Zander ring retractor. I reapproximated the peritoneum and rectus muscles using 3-0 Vicryl suture in running fashion. The fascia was reapproximated using 0 Vicryl suture in running fashion. Subcutaneous tissue was reapproximated using 3-0 plain interrupted subcutaneous stitch and skin reapproximated using 4-0 Monocryl in a running subcuticular. Dermabond was applied to incision sterile dressing with adhesive white tape. The patient tolerated the procedure well and sent to recovery in stable condition. Lap and sponge counts were correct at the end of the procedure. Instrument counts were correct as well. Two grams of Ancef and 500 mg of Flagyl are given for infection prophylaxis. Teixeira catheter was left in place. Job ID: [id number] DocumentID: [id number] Dictated Date: 12/30/2018 13:05:35 Demo Specialist Date: 12/30/2018 21:03:07 Dictated By: MOE LUGO DO
[2018-12-31 00:02] VITALS: BP 109/54
[2018-12-31] MEDS: KETOROLAC 30 MG/ML VIAL IV PRN (00:02)
[2018-12-31] MEDS: LACTATED RINGERS 1,000 ML IV SCH ×3 (00:23→08:19)
[2018-12-31] MEDS: HYDROcodone/APAP 7.5 MG/325 MG (LORTAB, LORCET PLUS) TABLET PO PRN ×3 (01:53→17:00)
[2018-12-31 04:50] VITALS: BP 99/65
[2018-12-31 06:29] LABS: BASOPHILS % (AUTO) 0 % (0-10); EOSINOPHILS % (AUTO) 0 % (0-10); HEMATOCRIT 36 % (35-52); HEMOGLOBIN 12.3 G/DL (11.5-16.0); LYMPHOCYTES # (AUTO) 1.6 X 10^3 (1.0-4.0); LYMPHOCYTES % (AUTO) 13 % (12-44); MEAN CORPUSCULAR HEMOGLOBIN 30 PG (25-34); MEAN CORPUSCULAR HGB CONC 34 G/DL (32-36); MEAN CORPUSCULAR VOLUME 89 FL (80-99); MEAN PLATELET VOLUME 9.7 FL (7.4-10.4); MONOCYTES # (AUTO) 1.1 X 10^3 (0.0-1.0); MONOCYTES % (AUTO) 9 % (0-12); NEUTROPHILS # (AUTO) 9.2 X 10^3 (1.8-7.8); NEUTROPHILS % (AUTO) 77 % (42-75); PLATELET COUNT 231 10^3/uL (130-400); RED CELL DISTRIBUTION WIDTH 12.5 % (10.0-14.5); WHITE BLOOD COUNT 11.9 10^3/uL (4.3-11.0)
[2018-12-31] MEDS: IBUPROFEN 600 MG (MOTRIN) TAB PO PRN ×3 (06:35→20:12)
[2018-12-31] MEDS: ENOXAPARIN 40 MG/0.4 ML (LOVENOX) SYR SQ SCH ×2 (06:36→18:20)
--- NOTE | 2018-12-31 08:33 | Progress Note ---
Standard Progress Note Progress Notes/Assess & Plan Date Seen by a Provider: Dec 31, 2018 Time Seen by a Provider: 08:10 Progress/Assessment & Plan Patient doing well POD 1 BRADLEY. Reports that pain is relatively controlled. Tolerating regular diet. Lluvia removed this am. Vital Sign - Last 24 Hours 12/30/18 12/30/18 12/30/18 12/30/18 13:00 13:00 13:10 13:15 Temp 36.7 Resp 30 28 B/P (MAP) 115/67 (83) 115/62 (79) Pulse Ox 97 98 O2 Delivery OxyMask OxyMask OxyMask OxyMask O2 Flow Rate 5 5 5 3 12/30/18 12/30/18 12/30/18 12/30/18 13:20 13:30 13:30 13:40 Resp 13 24 28 B/P (MAP) 112/58 (76) 110/65 (80) 109/63 (78) Pulse Ox 98 98 97 O2 Delivery OxyMask OxyMask OxyMask OxyMask O2 Flow Rate 3 3 3 1.5 12/30/18 12/30/18 12/30/18 12/30/18 13:45 13:50 14:00 14:00 Temp 37 Resp 12 14 B/P (MAP) 112/55 (74) 109/64 (79) Pulse Ox 95 92 O2 Delivery OxyMask Room Air OxyMask Room Air O2 Flow Rate 1.5 2 12/30/18 12/30/18 12/30/18 12/31/18 14:14 16:29 20:25 00:02 Temp 36.6 36.6 37.1 36.2 Pulse 83 80 91 99 Resp 18 18 18 18 B/P (MAP) 110/66 (81) 120/73 (89) 135/76 (95) 109/54 (72) Pulse Ox 98 95 96 95 O2 Delivery Nasal Cannula Room Air Room Air Room Air O2 Flow Rate 2.00 12/31/18 04:50 Temp 36.6 Pulse 88 Resp 18 B/P (MAP) 99/65 (76) Pulse Ox 97 O2 Delivery Room Air Intake and Output 12/30/18 12/30/18 12/31/18 15:00 23:00 07:00 Intake Total 2150 ml 1000 ml 1500 ml Output Total 140 ml 700 ml 750 ml Balance 2010 ml 300 ml 750 ml Laboratory Tests Test 12/31/18 06:08 Range/Units White Blood Count 11.9 H 4.3-11.0 10^3/uL Red Blood Count 4.08 L 4.35-5.85 10^6/uL Hemoglobin 12.3 11.5-16.0 G/DL Hematocrit 36 35-52 % Mean Corpuscular Volume 89 80-99 FL Mean Corpuscular Hemoglobin 30 25-34 PG Mean Corpuscular Hemoglobin Concent 34 32-36 G/DL Red Cell Distribution Width 12.5 10.0-14.5 % Platelet Count 231 130-400 10^3/uL Mean Platelet Volume 9.7 7.4-10.4 FL Neutrophils (%) (Auto) 77 H 42-75 % Lymphocytes (%) (Auto) 13 12-44 % Monocytes (%) (Auto) 9 0-12 % Eosinophils (%) (Auto) 0 0-10 % Basophils (%) (Auto) 0 0-10 % Neutrophils # (Auto) 9.2 H 1.8-7.8 X 10^3 Lymphocytes # (Auto) 1.6 1.0-4.0 X 10^3 Monocytes # (Auto) 1.1 H 0.0-1.0 X 10^3 Eosinophils # (Auto) 0.0 0.0-0.3 10^3/uL Basophils # (Auto) 0.0 0.0-0.1 10^3/uL Incision: c/d/i Diagnosis: POD 1 BRADLEY P: Encourage ambulation Continue PO care Anticipate dc tomorrow. JOVAN CHANG DO Dec 31, 2018 08:32 POS
--- NOTE | 2018-12-31 09:00 | NUR ---
Patient assisted up to restroom. + void noted. Pericare completed and patient ambulated back to room without difficulty. Patient would like to stay out of bed for a while. Encouraged patient to call with any questions or concerns.
[2018-12-31 09:45] VITALS: BP 105/61
--- NOTE | 2018-12-31 09:45 | NUR ---
AM shift assessment completed and vital signs obtained, see interventions. Plan of care reviewed with patient. Patient verbalizes understanding and questions answered. Abdominal binder applied. IV saline locked. Lortab 2 PO given for patient's c/o pain rated 9/10.
[2018-12-31 12:01] VITALS: BP 127/60
--- NOTE | 2018-12-31 12:01 | NUR ---
Patient sitting in bed. Vital signs obtained. Clean socks provided. Patient getting ready to get up and walk.
[2018-12-31 16:57] VITALS: BP 96/61
[2018-12-31] MEDS ORDERED: RT-ALBUTEROL SULF 2.5 MG/3 ML PRE-MIX VIAL ONE (18:16)
[2018-12-31] MEDS: RT-ALBUTEROL SULF 2.5 MG/3 ML PRE-MIX VIAL INH PRN ×2 (18:18→18:19)
[2018-12-31 20:12] VITALS: BP 92/62
[2019-01-01 02:40] VITALS: BP 116/78
[2019-01-01] MEDS: IBUPROFEN 600 MG (MOTRIN) TAB PO PRN (02:40)
[2019-01-01] MEDS: ENOXAPARIN 40 MG/0.4 ML (LOVENOX) SYR SQ SCH (06:46)
[2019-01-01 08:20] VITALS: BP 111/71
--- NOTE | 2019-01-01 08:21 | Progress Note ---
Standard Progress Note Progress Notes/Assess & Plan Date Seen by a Provider: Jan 01, 2019 Time Seen by a Provider: 08:14 Progress/Assessment & Plan Patient doing well POD 2 BRADLEY. Reports that pain is well controlled. Tolerating regular diet. Ambulating and voiding freely Incision: c/d/i Diagnosis: POD 2 BRADLEY P: Encourage ambulation Continue PO care Anticipate dc today JOVAN CHANG DO Jan 01, 2019 08:21 POS
== END 2019-01-01 10:10 | disposition home or self-care (01) | DRG 743 ==
LOC: SDC 07:42 → WS 14:31
PROVIDERS: ADMIT Obstetrics & Gynecology; ATTEND Obstetrics & Gynecology
PROC: 0UTC0ZZ Resection of Cervix, Open Approach (ICD-10-PCS; 2018-12-30)
PROC: 0WJJ4ZZ Inspection of Pelvic Cavity, Percutaneous Endoscopic Approach (ICD-10-PCS; 2018-12-30)
PROC: 0UT90ZZ Resection of Uterus, Open Approach (ICD-10-PCS; principal; 2018-12-30 10:09)
DX: N93.9 Abnormal uterine and vaginal bleeding, unspecified (principal); R10.2 Pelvic and perineal pain; N80.9 Endometriosis, unspecified; N94.10 Unspecified dyspareunia; Z53.31 Laparoscopic surgical procedure converted to open procedure; Z72.0 Tobacco use
CPT/HCPCS: 36415; 84703; 85025; 86850; 86900; 86901; 87081; 88307; 94640; 94664; 94760

== ENCOUNTER → 2019-07-03 | Outpatient (CLI) | payer MEDICAID ==
[~2019-07-03] MED LIST changes: +DOCU-143 PO; +FLUT15.845 NS; -FLUT15.88 NS; +LORA-404 PO; +VORT10TA PO
--- NOTE | 2019-07-03 14:09 | Diagnostic Imaging Report ---
INDICATION: Right knee pain from a previous injury TECHNIQUE: 2 views of the right knee CORRELATION STUDY: None FINDINGS: The joint spaces are maintained. The articular surfaces are smooth and preserved. There is no acute bony abnormality. Soft tissues are unremarkable. IMPRESSION: 1. Negative for acute bony abnormality of the right knee. Dictated by: Dictated on workstation # [id number]
== END ==
LOC: RAD 12:39
PROVIDERS: ATTEND Family Medicine
DX: K21.9 Gastro-esophageal reflux disease without esophagitis (principal); M25.561 Pain in right knee; F50.81 Binge eating disorder
CPT/HCPCS: 73560

== ENCOUNTER → 2020-06-03 | Outpatient (CLI) | payer MEDICAID ==
[~2020-06-03] MED LIST changes: -CIPR500T4 PO; +CIPR500T5 PO
--- NOTE | 2020-06-03 16:53 | Diagnostic Imaging Report ---
PROCEDURE: MRI right joint lower extremity without contrast. TECHNIQUE: Multiplanar, multisequence non contrast-enhanced MRI of the right lower extremity was accomplished. INDICATION: Right knee pain, chronic. Prior arthroscopies on both knees. COMPARISON: Radiographs from 07/03/2019. MRI from 10/27/2016. FINDINGS: No acute fracture is seen in the right knee. Alignment appears normal. There is a small right knee joint effusion. There is mild heterogeneity of the patellar articular cartilage with no full-thickness defects. The articular cartilage in the medial and lateral compartments demonstrates no full-thickness defects as well. The menisci are suboptimally seen on the coronal images due to poor signal. The medial meniscus appears somewhat diminutive, but no definite tear is seen. The lateral meniscus appears intact as well. The medial collateral ligament and the lateral collateral ligamentous complex appear intact. The anterior and posterior cruciate ligaments are intact. The extensor mechanism is intact. There is moderate edema in superolateral Hoffa's fat pad. IMPRESSION: 1. Small right knee joint effusion. No meniscus or ligament tear is seen in the right knee. 2. Moderate edema in Hoffa's fat pad, can be seen with patellofemoral impingement. Dictated by: Dictated on workstation # [id number]
== END ==
LOC: RAD 08:45
PROVIDERS: ATTEND Family Medicine
DX: M79.4 Hypertrophy of (infrapatellar) fat pad (principal)
CPT/HCPCS: 73721

== ENCOUNTER 2021-04-22 12:36 | Emergency (ER) | payer MEDICAID ==
[~2021-04-22] VITALS: Ht 162 cm; Wt 127.0 kg
[2021-04-22] MEDS ORDERED: TETANUS,DIPTH,PERTUSS P/F (BOOSTRIX) 0.5 ML VIAL IM ONE ×2 (13:05→13:15)
--- NOTE | 2021-04-22 13:16 | ED Upper Extremity ---
General Chief Complaint: Laceration Stated Complaint: R PINKY FINGER LAC Nursing Triage Note: PT STATES WAS USING A MADALIN AND SLICED OFF PIECE OF 5TH FINGER R HAND. PT FINGER CONT TO HAVE BLEEDING, PRESSURE APPLIED BY RN. PT CO OF PAIN 10/29 Source: patient Exam Limitations: no limitations History of Present Illness Date Seen by Provider: Apr 22, 2021 Time Seen by Provider: 13:12 Initial Comments To ER with a laceration to the right pinky finger just prior to arrival. Unsure of last tetanus vaccine date. She got this from using a mandolin to slice onions at home just prior to arrival. Onset: just prior to arrival Severity: moderate Pain/Injury Location: right 5th finger Method of Injury: direct blow Modifying Factors: Worse With Movement Allergies and Home Medications Allergies Coded Allergies: amoxicillin trihydrate (Verified Allergy, Mild, RASH-HAS HAD ANCEF W/O PROBLEMS, 12/24/18) tramadol (Verified Adverse Reaction, Mild, HEADACHES, 11/07/16) Patient Home Medication List Home Medication List Reviewed: Yes Albuterol Sulfate (Proair Hfa) 1 Puff Puff, 2 PUFF IH Q4H PRN for SHORTNESS OF BREATH, (Reported) Entered as Reported by: DOREEN ZAMORA on 12/24/18 1302 Docusate Sodium (Colace) 100 Mg Capsule, 100 MG PO BID PRN for CONSTIPATION-1ST LINE Prescribed by: JOVAN CHANG on 12/30/18 09 Hydrocodone Bit/Acetaminophen (Lortab 7.5 Mg Tablet) 1 Ea Tablet, 1-2 EA PO Q6H PRN for PAIN-MODERATE Prescribed by: JOVAN CHANG on 12/30/18 09 Ibuprofen (Ibuprofen) 600 Mg Tablet, 600 MG PO Q6H Prescribed by: JOVAN CHANG on 12/30/18 09 Lorazepam (Ativan) 0.5 Mg Tablet, 0.5 MG PO BID PRN for ANXIETY, (Reported) Entered as Reported by: HERIBERTO REYNOLDS on 12/30/18 09 Vortioxetine Hydrobromide (Trintellix) 10 Mg Tablet, 10 MG PO DAILY, (Reported) Entered as Reported by: HERIBERTO REYNOLDS on 12/30/18 09 Review of Systems Constitutional: see HPI EENTM: see HPI Respiratory: no symptoms reported Cardiovascular: no symptoms reported Genitourinary: no symptoms reported Musculoskeletal: see HPI Skin: see HPI Psychiatric/Neurological: No Symptoms Reported Past Mbtlpli-Rsloqk-Dtxrhs Hx Seasonal Allergies Seasonal Allergies: Yes Past Medical History Surgeries: Yes (R KNEE ARTHROSCOPY X5, L KNEE SCOPE, c/s x2, eswl, D&C, ENDOMETRIAL ABLATIO) Adenoidectomy, Section, Tonsillectomy Respiratory: Yes (USES 1-2 TIMES PER MONTH) Asthma Currently Using CPAP: No Currently Using BIPAP: No Cardiac: No Neurological: Yes Headaches /Migraines Reproductive Disorders: Yes (CPP/AUB ) Female Reproductive Disorders: Endometriosis, Ovarian Cyst Sexually Transmitted Disease: No HIV/AIDS: No Genitourinary: Yes Kidney Stones Gastrointestinal: No Musculoskeletal: Yes (TORN LATERAL MENISCUS) Arthritis, Chronic Back Pain Endocrine: No HEENT: Yes (GLASSES) Loss of Vision: Denies Hearing Impairment: Denies Cancer: No Psychosocial: Yes Anxiety, PTSD, Depression Integumentary: Yes (MILD) Eczema Blood Disorders: No Adverse Reaction/Blood Tranf: No (N/A) Family Medical History No Pertinent Family Hx Physical Exam Vital Signs Vital Signs - First Documented 04/22/21 12:38 Temp 36.8 Pulse 101 Resp 18 B/P (MAP) 139/103 (115) Pulse Ox 97 Capillary Refill : Less Than 3 Seconds Height, Weight, BMI Height: 5'4.00" Weight: 270lbs. 0.0oz. 122.684437tm; 48.00 BMI Method:Stated General Appearance: WD/WN, no apparent distress HEENT: PERRL/EOMI, normal ENT inspection Respiratory: no respiratory distress, no accessory muscle use Shoulder: normal inspection Elbow/Forearm: normal inspection, non-tender Wrist: Yes normal inspection, Yes non-tender Hand: Right, laceration (There is a skin avulsion to the pad of the distal) Neurologic/Psychiatric: alert, normal mood/affect, oriented x 3 Skin: normal color, warm/dry Progress/Results/Core Measures Results/Orders My Orders Orders - SHAI TORRES APRN Dipht,Pertuss(Acell),Tet Adult (Boostrix (04/22/21 13:15) Dipht,Pertuss(Acell),Tet Adult (Boostrix (04/22/21 13:05) Medications Given in ED Current Medications Medications Dose Ordered Sig/Ree Route Start Time Stop Time Status Last Admin Dose Admin Diphtheria/ Tetanus/Acell Pertussis 0.5 ml STK-MED ONCE IM 04/22/21 13:05 04/22/21 13:08 DC 04/22/21 13:10 0.5 ML Vital Signs/I&O 04/22/21 12:38 Temp 36.8 Pulse 101 Resp 18 B/P (MAP) 139/103 (115) Pulse Ox 97 Blood Pressure Mean: 115 Departure Communication (Admissions) 1313-this was scrubbed with chlorhexidine/saline solution, some lidocaine was then dripped onto the finger. Then some wound adhesive was placed to help with hemostasis. Impression Primary Impression: Skin avulsion Disposition: HOME, SELF-CARE Condition: Stable Departure-Patient Inst. Decision time for Depature: 13:15 Referrals: RIGOBERTO STARKS MD (PCP/Family) Primary Care Physician Patient Instructions: SKIN AVULSION Add. Discharge Instructions: 1. Do not apply any ointments or creams or lotions. Allow the glue to fall off on its own in 3 to 5 days. Keep the splint on to keep it protected in the meantime. All discharge instructions reviewed with patient and/or family. Voiced understanding. SHAI TORRES APRN Apr 22, 2021 13:16
[2021-04-22 13:18] VITALS: BP 139/103
== END 2021-04-22 13:23 | disposition home or self-care (01) ==
LOC: EDUNIT# 12:36 → ER 12:37
DX: S61.306A Unspecified open wound of right little finger with damage to nail, initial encounter (principal); W26.8XXA Contact with other sharp object(s), not elsewhere classified, initial encounter
CPT/HCPCS: 12041; 90715